=== PATIENT | female | born 1970 | race African-American/Black ===

== ENCOUNTER 2017-12-04 10:53 | Observation (INO) | payer MEDICAID, OTHER ==
[2017-12-04] MEDS ORDERED: MECLIZINE HCL 25 MG TABLET PO ONE (11:43)
--- NOTE | 2017-12-04 11:45 | ER Document Report ---
ED Medical Screen (RME) - General Chief Complaint: Passed Out Prior to Arrival Stated Complaint: PASSED OUT AT WORK Time Seen by Provider: 12/04/17 11:41 Notes: RAPID MEDICAL EVALUATION DISCLOSURE I have seen this patient as part of a Rapid Medical Evaluation and, if applicable, placed any initially appropriate orders. The patient will be seen and fully evaluated, including a full history and physical exam, by a provider ( in Main ED or Fast Track) when a room becomes available. 47-year-old female PMH heavy menses here with complaints of lightheadedness and dizziness (room spinning sensation) ringing in the ears that started earlier this morning while she was at work. She just started her menstrual cycle and this time has been particularly heavy. When she started feeling this way at work, she went and sat down for a few minutes and then when she stood back up, symptoms worsened so she laid down on the floor. Reports that she did not completely pass out but felt very close to it. Her coworkers went and got her some food and drink and she felt a bit better after consuming this. She usually has these symptoms often during her menstrual cycle but states that he has never been as bad as it was today. She has minimal symptoms at this current time. EXAM CTAB RRR TRAVEL OUTSIDE OF THE [place] IN LAST 30 DAYS: No - Related Data Allergies/Adverse Reactions: No Known Allergies Allergy (Verified 12/04/17 10:55) Physical Exam - Vital signs Vitals: Temp Pulse Resp BP Pulse Ox 98.9 F 99 15 101/61 100 12/04/17 11:06 12/04/17 11:06 12/04/17 11:06 12/04/17 11:06 12/04/17 11:06 Course - Vital Signs Vital signs: Temp Pulse Resp BP Pulse Ox 98.9 F 99 15 101/61 100 12/04/17 11:06 12/04/17 11:06 12/04/17 11:06 12/04/17 11:06 12/04/17 11:06 Doctor's Discharge - Discharge Referrals: TALAT CRAVEN MD [Primary Care Provider] - Follow up as needed
[2017-12-04 12:06] LABS: HEMATOCRIT 19.5 % (36.0-47.0); MEAN CORPUSCULAR HGB CONC 26.6 g/dL (32.0-36.0); PLATELET COUNT 183 10^3/uL (150-450); RED BLOOD COUNT 3.24 10^6/uL (3.72-5.28); RED CELL DISTRIBUTION WIDTH 33.1 % (11.5-14.0)
[2017-12-04 12:27] LABS: ALANINE AMINOTRANSFERASE 23 U/L (9-52); ALBUMIN 4.1 g/dL (3.5-5.0); ALKALINE PHOSPHATASE 52 U/L (38-126); ANION GAP 10 (5-19); ASPARTATE AMINO TRANSFERASE 17 U/L (14-36); BILIRUBIN,DIRECT 0.2 mg/dL (0.0-0.4); BILIRUBIN,TOTAL 0.4 mg/dL (0.2-1.3); BLOOD UREA NITROGEN 15 mg/dL (7-20); CALCIUM 8.7 mg/dL (8.4-10.2); CARBON DIOXIDE 26 mmol/L (22-30); CHLORIDE 107 mmol/L (98-107); GLUCOSE 100 mg/dL (75-110); PHOSPHORUS 3.7 mg/dL (2.5-4.5); POTASSIUM 3.9 mmol/L (3.6-5.0); SODIUM 142.9 mmol/L (137-145); TOTAL PROTEIN 7.7 g/dL (6.3-8.2)
[2017-12-04 12:37] LABS: HEMOGLOBIN 5.2 g/dL (12.0-15.5); MEAN CORPUSCULAR VOLUME 60 fl (80-97)
[2017-12-04 12:41] LABS: ABSOLUTE LYMPHOCYTES# (MANUAL) 0.9 10^3/uL (0.5-4.7); ABSOLUTE MONOCYTES # (MANUAL) 0.6 10^3/uL (0.1-1.4); ABSOLUTE NEUTROPHILS# (MANUAL) 4.6 10^3/uL (1.7-8.2); BASOPHILS % (MANUAL) 3 % (0-2); EOSINOPHILS % (MANUAL) 9 % (0-6); LYMPHOCYTES % (MANUAL) 13 % (13-45); MONOCYTES % (MANUAL) 9 % (3-13); SEGMENTED NEUTROPHILS % (MAN) 66 % (42-78); TOTAL CELLS COUNTED 100
[2017-12-04 12:42] LABS: ANISOCYTOSIS 4+; HYPOCHROMASIA 3+
[2017-12-04 12:43] LABS: OVALOCYTES 1+; PLATELET COMMENT ADEQUATE; POIKILOCYTOSIS 1+; ROULEAUX 1+; TARGET CELLS 1+; TEAR DROP CELLS 1+
[2017-12-04] MEDS ORDERED: NORMAL SALINE 250 ML IV PRN ×4 (12:49→13:39)
--- NOTE | 2017-12-04 13:11 | ER Document Report ---
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 No chest pa9n or sob. Hx of anemia usually 10, but this past year is increasingly dizzy whle on menses, gets SOB with exertion, craves ice chips, and has a urterne fibroid that is gettng larger. NO recent illness or fever. No abd. chowdhury. TRAVEL OUTSIDE OF THE [place] IN LAST 30 DAYS: No - Related Data Allergies/Adverse Reactions: No Known Allergies Allergy (Verified 12/04/17 10:55) Past Medical History - General Information source: Patient - Social History Smoking Status: Current Every Day Smoker Chew tobacco use (# tins/day): No Frequency of alcohol use: None Drug Abuse: None Lives with: Spouse/Significant other Family History: Reviewed & Not Pertinent Patient has suicidal ideation: No Patient has homicidal ideation: No - Medical History Notes: anemia Renal/ Medical History: Denies: Hx Peritoneal Dialysis Physical Exam - Vital signs Vitals: Temp Pulse Resp BP Pulse Ox 98.9 F 99 15 101/61 100 12/04/17 11:06 12/04/17 11:06 12/04/17 11:06 12/04/17 11:06 12/04/17 11:06 Interpretation: Normal - General General appearance: Appears well, Alert - HEENT Head: Normocephalic, Atraumatic Eyes: Normal. No: Periorbital edema Pupils: PERRL Neck: Supple. No: Lymphadenopathy - Respiratory Respiratory status: No respiratory distress Chest status: Nontender Breath sounds: Normal Chest palpation: Normal - Cardiovascular Rhythm: Regular Heart sounds: Normal auscultation Murmur: No - Abdominal Inspection: Normal Distension: No distension Bowel sounds: Normal Tenderness: Nontender Organomegaly: Mass - fibrod uterurs palpated - Back Back: Normal, Nontender. No: CVA tenderness - Extremities General upper extremity: Normal inspection, Nontender, Normal color, Normal ROM , Normal temperature General lower extremity: Normal inspection, Nontender, Normal color, Normal ROM , Normal temperature, Normal weight bearing. No: Jaswinder's sign - Neurological Neuro grossly intact: Yes Cognition: Normal Orientation: AAOx4 [place] Coma Scale Eye Opening: Spontaneous Сергей Coma Scale Verbal: Oriented [place] Coma Scale Motor: Obeys Commands [place] Coma Scale Total: 15 Speech: Normal Motor strength normal: LUE, RUE, LLE, RLE Sensory: Normal - Psychological Associated symptoms: Normal affect, Normal mood - Skin Skin Temperature: Warm Skin Moisture: Dry Skin Color: Normal Skin irregularity: negative: Rash Course - Re-evaluation Re-evalutation: 12/04/17 13:09 hbg 5.2, not dizzy anymore when stands. consult dr. martins who does say she needs to be transfused. dr loaiza said to call dr. jose for admission- observation for the blood. 12/04/17 21:54 looking back on her chart, she has 3+ bacteria , 174 WBCm rbc (on menses), called dr. ochoa night hospitalist to let him know that I added urine culture. He wll take care if he feels she needs antibiotics but suspects colonization since no fever. 12/04/17 21:55 - Vital Signs Vital signs: Temp Pulse Resp BP Pulse Ox 98.3 F 71 18 122/66 99 12/04/17 20:18 12/04/17 20:18 12/04/17 20:18 12/04/17 20:18 12/04/17 20:18 - Laboratory Result Diagrams: 12/04/17 11:48 12/04/17 11:48 Laboratory results interpreted by me: 12/04/17 12/04/17 11:48 13:40 RBC 3.24 L Hgb 5.2 L Hct 19.5 L MCV 60 L MCH 16.0 L MCHC 26.6 L RDW 33.1 H Eosinophils % (Manual) 9 H Basophils % (Manual) 3 H Urine Protein 100 H Urine Glucose (UA) 50 H Urine Blood LARGE H Ur Leukocyte Esterase SMALL H Discharge - Discharge Clinical Impression: Symptomatic anemia, Uterine fibroid Condition: Stable Disposition: ADMITTED OBSERVATION Admitting Provider: Hospitalist Unit Admitted: Medical Floor
[2017-12-04] MEDS ORDERED: ONDANSETRON HCL INJ/PF 4 MG/2 ML SDV IV PRN (13:21)
[2017-12-04] MEDS ORDERED: ACETAMINOPHEN 325 MG TABLET PO PRN (13:21)
--- NOTE | 2017-12-04 13:39 | PDOC H&P ---
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 Her initial blood work shows drop in her hemoglobin of 5.2 from 10. Of note patient has heavy menses and uterine fibroid . Patient denies other chronic medical problems. No nausea , vomiting, abdominal pain, diarrhea, urinary complaints. No fever, chills, chest pain, cough, palpitation or diaphoresis patient endorses dizziness but no headache, blurry vision or seizure activity. No facial or leg swelling. Past Medical History Renal/ Medical History: Reports: Other - Fibroid Social History Smoking Status: Current Every Day Smoker Frequency of Alcohol Use: None Hx Recreational Drug Use: No Drugs: None Family History Family History: Hypertension Parental Family History Reviewed: Yes Children Family History Reviewed: Yes Sibling(s) Family History Reviewed.: Yes Medication/Allergy Allergies/Adverse Reactions: No Known Allergies Allergy (Verified 12/04/17 10:55) Review of Systems Constitutional: PRESENT: as per HPI Eyes: PRESENT: as per HPI Ears: PRESENT: as per HPI Cardiovascular: PRESENT: as per HPI Respiratory: PRESENT: as per HPI Neurological: PRESENT: as per HPI Psychiatric: PRESENT: as per HPI Physical Exam Vital Signs: Temp Pulse Resp BP Pulse Ox 98.9 F 99 15 101/61 100 12/04/17 11:06 12/04/17 11:06 12/04/17 11:06 12/04/17 11:06 12/04/17 11:06 Intake & Output 12/03/17 12/04/17 12/05/17 06:59 06:59 06:59 Weight 72.2 kg Results Laboratory Results: 12/04/17 11:48 12/04/17 11:48 12/04/17 12/04/17 11:48 11:48 WBC 7.0 RBC 3.24 L Hgb 5.2 L Hct 19.5 L MCV 60 L MCH 16.0 L MCHC 26.6 L RDW 33.1 H Plt Count 183 Seg Neutrophils % Not Reportable Lymphocytes % Not Reportable Monocytes % Not Reportable Eosinophils % Not Reportable Basophils % Not Reportable Absolute Neutrophils Not Reportable Absolute Lymphocytes Not Reportable Absolute Monocytes Not Reportable Absolute Eosinophils Not Reportable Absolute Basophils Not Reportable Sodium 142.9 Potassium 3.9 Chloride 107 Carbon Dioxide 26 Anion Gap 10 BUN 15 Creatinine 0.85 Est GFR ( Amer) > 60 Est GFR (Non-Af Amer) > 60 Glucose 100 Calcium 8.7 Phosphorus 3.7 Magnesium 1.9 Total Bilirubin 0.4 AST 17 ALT 23 Alkaline Phosphatase 52 Total Protein 7.7 Albumin 4.1 Assessment & Plan - Diagnosis (1) Symptomatic anemia Is this a current diagnosis for this admission?: Yes Plan: Patient presents with dizziness and syncope due to underlying blood loss anemia. 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
[2017-12-04 15:22] LABS: APPEARANCE,URINE SLIGHTLY-CLOUDY; BILIRUBIN,URINE NEGATIVE (NEGATIVE); COLOR,URINE RED; GLUCOSE, URINE 50 mg/dL (NEGATIVE); KETONES,URINE NEGATIVE (NEGATIVE); LEUKOCYTE ESTERASE,URINE SMALL (NEGATIVE); NITRITE,URINE NEGATIVE (NEGATIVE); PROTEIN,URINE 100 mg/dL (NEGATIVE); URINE SPECIFIC GRAVITY 1.008; UROBILINOGEN,URINE NEGATIVE mg/dL (<2.0)
--- NOTE | 2017-12-04 19:42 | EKG REPORT ---
SEVERITY:- ABNORMAL ECG - SINUS RHYTHM LEFT ATRIAL ABNORMALITY : Confirmed by: Linda Alonso MD 04-Dec-2017 19:41:37
[2017-12-04] MEDS ORDERED: IRON SUCROSE COMPLEX INJ/PF 100 MG/5 ML SDV IV ONE ×2 (22:30→23:15)
[2017-12-04 22:40] LABS: IRON(TIBC) 11.1 ug/dL (37-170)
[2017-12-04 22:46] LABS: ABSOLUTE RETICS # 0.106 10^6/uL (0.028-0.122); RETICULOCYTE COUNT (AUTO) 3.23 % (0.66-2.85)
[2017-12-04 23:14] LABS: FERRITIN 3.75 ng/mL (6.2-137.0)
[2017-12-05] MEDS ORDERED: LANSOPRAZOLE 30 MG TAB.RAP.DR PO SCH (06:00)
[2017-12-05 07:23] LABS: HEMATOCRIT 22.2 % (36.0-47.0); MEAN CORPUSCULAR HEMOGLOBIN 19.5 pg (27.0-33.4); MEAN CORPUSCULAR HGB CONC 29.6 g/dL (32.0-36.0); RED BLOOD COUNT 3.37 10^6/uL (3.72-5.28); RED CELL DISTRIBUTION WIDTH 37.4 % (11.5-14.0); WHITE BLOOD COUNT 8.9 10^3/uL (4.0-10.5)
[2017-12-05 07:29] LABS: ANION GAP 8 (5-19); BLOOD UREA NITROGEN 11 mg/dL (7-20); CALCIUM 8.2 mg/dL (8.4-10.2); CARBON DIOXIDE 24 mmol/L (22-30); CHLORIDE 110 mmol/L (98-107); GLUCOSE 89 mg/dL (75-110); POTASSIUM 3.7 mmol/L (3.6-5.0); SODIUM 142.4 mmol/L (137-145)
[2017-12-05 08:23] LABS: HEMOGLOBIN 6.6 g/dL (12.0-15.5)
[2017-12-05 08:25] LABS: MEAN CORPUSCULAR VOLUME 66 fl (80-97)
[2017-12-05 08:26] LABS: PLATELET COUNT 222 10^3/uL (150-450)
[2017-12-05] MEDS ORDERED: NORMAL SALINE 250 ML IV PRN ×2 (10:31)
[2017-12-05 14:10] LABS: PATH REVIEW PATHOLOGIST REVIEWED
--- NOTE | 2017-12-05 14:26 | PDOC DISCHARGE SUMMARY ---
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 Her initial blood work shows drop in her hemoglobin of 5.2 from 10. Of note patient has heavy menses and uterine fibroid . Patient denies other chronic medical problems. No nausea , vomiting, abdominal pain, diarrhea, urinary complaints. No fever, chills, chest pain, cough, palpitation or diaphoresis patient endorses dizziness but no headache, blurry vision or seizure activity. No facial or leg swelling. Hospital Course Hospital Course: This is a 47 years old black female patient admitted yesterday for symptomatic anemia due heavy menses secondary to uterine fibroid. At that admission her hemoglobin was 5.2 after she got 2 units of PRBC her hemoglobin trended up to 6.6 but still she needs additional 1 unit of packed RBC. Patient advised her to have a hysterectomy since she completed her family. [facility] This morning I seen patient while she is resting in bed she is awake alert oriented she is not in pain or any form of distress. Was she finished her third PRBC patient is going to go. Physical Exam Vital Signs: Temp Pulse Resp BP Pulse Ox 98.1 F 66 15 114/59 L 100 12/05/17 13:24 12/05/17 13:24 12/05/17 13:24 12/05/17 13:24 12/05/17 13:24 Intake & Output 12/04/17 12/05/17 12/06/17 06:59 06:59 06:59 Intake Total 600 420 Balance 600 420 Weight 70 kg General appearance: PRESENT: no acute distress, well-developed, well-nourished Head exam: PRESENT: atraumatic, normocephalic Eye exam: PRESENT: conjunctiva pink, EOMI, PERRLA. ABSENT: scleral icterus Ear exam: PRESENT: normal external ear exam Mouth exam: PRESENT: moist, tongue midline Neck exam: ABSENT: carotid bruit, JVD, lymphadenopathy, thyromegaly Respiratory exam: PRESENT: clear to auscultation felipe. ABSENT: rales, rhonchi, wheezes Cardiovascular exam: PRESENT: RRR. ABSENT: diastolic murmur, rubs, systolic murmur Pulses: PRESENT: normal dorsalis pedis pul Vascular exam: PRESENT: normal capillary refill GI/Abdominal exam: PRESENT: normal bowel sounds, soft. ABSENT: distended, guarding, mass, organolmegaly, rebound, tenderness Rectal exam: PRESENT: deferred Extremities exam: PRESENT: full ROM. ABSENT: calf tenderness, clubbing, pedal edema Neurological exam: PRESENT: alert, awake, oriented to person, oriented to place , oriented to time, oriented to situation, CN II-XII grossly intact. ABSENT: motor sensory deficit Psychiatric exam: PRESENT: appropriate affect, normal mood. ABSENT: homicidal ideation, suicidal ideation Skin exam: PRESENT: dry, intact, warm. ABSENT: cyanosis, rash Results Laboratory Results: 12/05/17 07:03 12/05/17 07:03 12/04/17 12/05/17 12/05/17 14:09 07:03 07:03 WBC 8.9 RBC 3.37 L Hgb 6.6 L Hct 22.2 L MCV 66 L D MCH 19.5 L MCHC 29.6 L RDW 37.4 H Plt Count 222 Sodium 142.4 Potassium 3.7 Chloride 110 H Carbon Dioxide 24 Anion Gap 8 BUN 11 Creatinine 0.59 Est GFR ( Amer) > 60 Est GFR (Non-Af Amer) > 60 Glucose 89 Calcium 8.2 L Blood Type B POSITIVE Antibody Screen NEGATIVE Qualifiers - * PATIENT BEING DISCHARGED WITH ANY OF THE FOLLOWING DIAGNOSIS: No
[2017-12-05 16:50] VITALS: BP 118/71
[2017-12-05 17:32] LABS: ABSOLUTE BASOPHILS # (AUTO) 0.1 10^3/uL (0.0-0.2); ABSOLUTE EOSINOPHILS # (AUTO) 0.6 10^3/uL (0.0-0.6); ABSOLUTE LYMPHOCYTES (AUTO) 1.8 10^3/uL (0.5-4.7); ABSOLUTE MONOCYTES (AUTO) 0.8 10^3/uL (0.1-1.4); ABSOLUTE NEUT (AUTO) 6.2 10^3/uL (1.7-8.2); BASOPHILS % (AUTO) 0.9 % (0-2); EOSINOPHILS % (AUTO) 6.7 % (0-6); HEMATOCRIT 25.4 % (36.0-47.0); LYMPHOCYTES % (AUTO) 19.3 % (13-45); MEAN CORPUSCULAR HEMOGLOBIN 21.4 pg (27.0-33.4); MEAN CORPUSCULAR HGB CONC 31.6 g/dL (32.0-36.0); MEAN CORPUSCULAR VOLUME 68 fl (80-97); MONOCYTES % (AUTO) 7.9 % (3-13); PLATELET COUNT 265 10^3/uL (150-450); RED BLOOD COUNT 3.74 10^6/uL (3.72-5.28); SEGMENTED NEUTROPHILS % (AUTO) 65.2 % (42-78); TOTAL CELLS COUNTED % (AUTO) 100 %; WHITE BLOOD COUNT 9.5 10^3/uL (4.0-10.5)
[2017-12-05 18:01] LABS: ANISOCYTOSIS 4+; HYPOCHROMASIA 1+; TOXIC GRANULATION SLIGHT
[2017-12-05 18:02] LABS: ACANTHOCYTES SLIGHT; PLATELET COMMENT ADEQUATE; POIKILOCYTOSIS 2+; TEAR DROP CELLS SLIGHT
== END 2017-12-05 18:55 | disposition home or self-care (01) ==
LOC: ER 10:53 → EH 13:43 → 2S 14:57
PROVIDERS: ADMIT Internal Medicine; ATTEND Internal Medicine
PROC: 30233N1 Transfusion of Nonautologous Red Blood Cells into Peripheral Vein, Percutaneous Approach (ICD-10-PCS; principal; 2017-12-04)
PROC: 30233N1 Transfusion of Nonautologous Red Blood Cells into Peripheral Vein, Percutaneous Approach (ICD-10-PCS; 2017-12-05)
DX: D62 Acute posthemorrhagic anemia (principal); D50.0 Iron deficiency anemia secondary to blood loss (chronic); D25.9 Leiomyoma of uterus, unspecified; N92.0 Excessive and frequent menstruation with regular cycle; F17.200 Nicotine dependence, unspecified, uncomplicated; R55 Syncope and collapse; Z82.49 Family history of ischemic heart disease and other diseases of the circulatory system
CPT/HCPCS: 93005; 99285; 86900; 86901; 36415 ×2; 87086; 36430; 86850; 82607; 82728; 82746; 83540; 83550; 83735; 84100; 85025 ×2; 85027; 85045; 80048; 80053; 81001; 86920; 93010; G0378 ×3; P9016 ×2; J3490 ×2; J1756

== ENCOUNTER 2019-08-06 09:54 | Observation (INO) | payer OTHER ==
--- NOTE | 2019-08-06 11:57 | ER Document Report ---
ED Medical Screen (RME) - General Chief Complaint: Abnormal Lab Results Stated Complaint: ABNORMAL LABS Time Seen by Provider: 08/06/19 11:51 Notes: HPI: 49-year-old female presenting to the emergency department for evaluation of severe anemia. Patient states that she has a history of fibroid uterus and has had to be transfused approximately 2 years ago. Patient states that she was just not feeling well yesterday and went to the [place] [facility] and had blood work drawn and they called her back and told her that her hemoglobin was 5.5 and she would need a blood transfusion. Patient denies shortness of breath, chest pain, dizziness with standing. States her last menstrual cycle was 2 weeks ago she is not having vaginal bleeding currently I have greeted and performed a rapid initial assessment of this patient. A comprehensive ED assessment and evaluation of the patient, analysis of test results and completion of the medical decision making process will be conducted by additional ED providers PHYSICAL EXAMINATION: GENERAL: Well-appearing, well-nourished and in no acute distress. HEAD: Atraumatic, normocephalic. EYES: sclera pale, conjunctiva are normal. ENT: Moist mucous membranes. NECK: Normal range of motion LUNGS: Normal work of breathing, clear to auscultation HEART: 2+ radial pulses bilaterally, regular rate and rhythm ABD: limited by positioning for exam in triage. No tenderness on palpation EXTREMITIES: no pitting or edema. No cyanosis. NEUROLOGICAL: No focal neurological deficits. Moves all extremities spontaneously and on command. PSYCH: Normal mood, normal affect. SKIN: Warm, Dry, normal turgor, no rashes or lesions noted. Patient is moderately pale TRAVEL OUTSIDE OF THE [place] IN LAST 30 DAYS: No - Related Data Allergies/Adverse Reactions: No Known Allergies Allergy (Verified 12/04/17 10:55) Past Medical History - Social History Frequency of alcohol use: None Drug Abuse: None Renal/ Medical History: Denies: Hx Peritoneal Dialysis Physical Exam - Vital signs Vitals: Temp Pulse Resp BP Pulse Ox 98.1 F 74 20 117/65 100 08/06/19 10:00 08/06/19 10:08/06/19 10:00 08/06/19 10:08/06/19 10:00 Course - Vital Signs Vital signs: Temp Pulse Resp BP Pulse Ox 98.1 F 74 20 117/65 100 08/06/19 10:00 08/06/19 10:00 08/06/19 10:00 08/06/19 10:00 08/06/19 10:00
--- NOTE | 2019-08-06 13:01 | ER Document Report ---
ED General - General Chief Complaint: Abnormal Lab Results Stated Complaint: ABNORMAL LABS Time Seen by Provider: 08/06/19 11:51 Information source: Patient Notes: Patient is a 49-year-old female presenting to the emergency department chief complaint of acute on chronic anemia. Patient states she has a history of ane roe however for the past 2 to 3 weeks she has been feeling more weak than normal she went in and had blood work checked and was called and instructed to come to the emergency department. Patient's blood count per laboratory testing was 5 however today in the emergency department after obtaining blood work hemoglobin was 6.3. Patient states that she has a history of uterine fibroids. Patient denies any other complaints at this time. TRAVEL OUTSIDE OF THE [place] IN LAST 30 DAYS: No - HPI Onset: Other - 2-3 wks Onset/Duration: Gradual Quality of pain: No pain Severity: None Pain Level: 0 Associated symptoms: Weakness Exacerbated by: Denies Relieved by: Denies Similar symptoms previously: Yes Recently seen / treated by doctor: Yes - Related Data Allergies/Adverse Reactions: No Known Allergies Allergy (Verified 12/04/17 10:55) Past Medical History - General Information source: Patient - Social History Smoking Status: Never Smoker Frequency of alcohol use: None Drug Abuse: None Family History: Reviewed & Not Pertinent Patient has suicidal ideation: No Patient has homicidal ideation: No Renal/ Medical History: Reports: Other - Uterine fibroids. Denies: Hx Peritoneal Dialysis Review of Systems - Review of Systems Notes: REVIEW OF SYSTEMS: CONSTITUTIONAL : Denies fever, chills, or sweats. Generalized weakness EENT: Denies eye, ear, throat, or mouth pain or symptoms. Denies nasal or sinus congestion. CARDIOVASCULAR: Denies chest pain. RESPIRATORY: Denies cough, cold, or chest congestion. Denies shortness of br eath, difficulty breathing, or wheezing. GASTROINTESTINAL: Denies abdominal pain. Denies nausea, vomiting, or diarrhea. Denies constipation. GENITOURINARY: Denies difficulty urinating, painful urination, burning, frequency, or blood in urine. Uterine fibroid bleeding MUSCULOSKELETAL: Denies neck or back pain or joint pain or swelling. SKIN: Denies rash or skin lesions. HEMATOLOGIC : Denies easy bruising or bleeding. NEUROLOGICAL: Denies altered mental status or loss of consciousness. Denies headache. Denies weakness or paralysis or loss of use of either side. Denies problems with gait or speech. Denies sensory or motor loss. PSYCHIATRIC: Denies suicidal or homicidal ideations 10 Systems are negative unless otherwise specified above Physical Exam - Vital signs Vitals: Temp Pulse Resp BP Pulse Ox 98.1 F 74 20 117/65 100 08/06/19 10:00 08/06/19 10:00 08/06/19 10:00 08/06/19 10:00 08/06/19 10:00 - Notes Notes: PHYSICAL EXAMINATION: GENERAL: Well-appearing, well-nourished and in no acute distress. HEAD: Atraumatic, normocephalic. EYES: Pupils equal round and reactive to light, extraocular movements intact, sclera anicteric, conjunctiva are normal. ENT: nares patent, oropharynx clear without exudates. Moist mucous membranes. NECK: Normal range of motion, supple without lymphadenopathy, no appreciable JVD LUNGS: Lungs clear to auscultation bilaterally and equal. No wheezes rales or rhonchi. HEART: Regular rate and rhythm without murmurs ABDOMEN: Soft, nontender, normal bowel sounds. No guarding, no rebound. No masses appreciated. EXTREMITIES: Active full range of motion, no pitting or edema. No cyanosis. 2+ pulses x4 NEUROLOGICAL: No focal neurological deficits. Moves all extremities spontane ously and on command. SKIN: Warm, Dry, and intact. Normal turgor, no rashes or lesions noted. Course - Re-evaluation Re-evalutation: 08/06/19 16:50 Patient has remained stable while in emergency department. Patient has no complaints at this time. We have discussed the need for transfusion patient is agreeable with same. 2 units of packed red blood cells crossmatched have been ordered. I spoke with the hospitalist who is agreeable with admission at this time. - Vital Signs Vital signs: Temp Pulse Resp BP Pulse Ox 98.1 F 74 20 117/65 100 08/06/19 10:00 08/06/19 10:00 08/06/19 10:00 08/06/19 10:00 08/06/19 10:00 - Laboratory Result Diagrams: 08/06/19 12:44 08/06/19 12:44 Laboratory results interpreted by me: 08/06/19 08/06/19 08/06/19 12:44 12:44 13:15 Hgb 6.3 L Hct 22.5 L MCV 60 L MCH 16.6 L MCHC 27.8 L RDW 28.4 H Eosinophils % (Manual) 11 H Creatinine 0.48 L Total Protein 8.8 H Crossmatch See Detail Discharge - Discharge Clinical Impression: Uterine fibroid Qualifiers: Uterine leiomyoma location: unspecified location Qualified Code(s): D25.9 - Leiomyoma of uterus, unspecified Anemia Qualifiers: Anemia type: iron deficiency Iron deficiency anemia type: chronic blood loss Qualified Code(s): D50.0 - Iron deficiency anemia secondary to blood loss (chronic) Condition: Stable Disposition: ADMITTED INPATIENT Unit Admitted: Medical Floor
[2019-08-06 13:04] LABS: WHITE BLOOD COUNT 4.8 10^3/uL (4.0-10.5)
[2019-08-06 13:20] LABS: ALBUMIN 4.5 g/dL (3.5-5.0); ALKALINE PHOSPHATASE 61 U/L (38-126); ANION GAP 8 (5-19); ASPARTATE AMINO TRANSFERASE 26 U/L (14-36); BILIRUBIN,TOTAL 0.4 mg/dL (0.2-1.3); BLOOD UREA NITROGEN 12 mg/dL (7-20); CALCIUM 8.9 mg/dL (8.4-10.2); CARBON DIOXIDE 24 mmol/L (22-30); CHLORIDE 107 mmol/L (98-107); GLUCOSE 81 mg/dL (75-110); POTASSIUM 4.4 mmol/L (3.6-5.0); TOTAL PROTEIN 8.8 g/dL (6.3-8.2)
[2019-08-06 13:38] LABS: HEMATOCRIT 22.5 % (36.0-47.0); HEMOGLOBIN 6.3 g/dL (12.0-15.5); MEAN CORPUSCULAR HEMOGLOBIN 16.6 pg (27.0-33.4); MEAN CORPUSCULAR HGB CONC 27.8 g/dL (32.0-36.0); PLATELET COUNT 321 10^3/uL (150-450); RED BLOOD COUNT 3.76 10^6/uL (3.72-5.28); RED CELL DISTRIBUTION WIDTH 28.4 % (11.5-14.0)
[2019-08-06 13:39] LABS: MEAN CORPUSCULAR VOLUME 60 fl (80-97)
[2019-08-06 13:44] LABS: ABSOLUTE LYMPHOCYTES# (MANUAL) 1.2 10^3/uL (0.5-4.7); ABSOLUTE MONOCYTES # (MANUAL) 0.3 10^3/uL (0.1-1.4); BASOPHILS % (MANUAL) 0 % (0-2); EOSINOPHILS % (MANUAL) 11 % (0-6); LYMPHOCYTES % (MANUAL) 26 % (13-45); MONOCYTES % (MANUAL) 7 % (3-13); SEGMENTED NEUTROPHILS % (MAN) 56 % (42-78); TOTAL CELLS COUNTED 100
[2019-08-06 13:48] LABS: ANISOCYTOSIS 3+; HYPOCHROMASIA 2+; OVALOCYTES 1+; POIKILOCYTOSIS 2+; POLYCHROMASIA SLIGHT; TEAR DROP CELLS 1+
[2019-08-06 13:49] LABS: PLATELET COMMENT ADEQUATE; SCHISTOCYTES SLIGHT
[2019-08-06] MEDS ORDERED: NORMAL SALINE 250 ML IV PRN ×2 (16:45)
[2019-08-06] MEDS ORDERED: ONDANSETRON HCL INJ/PF 4 MG/2 ML SDV IV PRN (17:53)
[2019-08-06] MEDS ORDERED: ACETAMINOPHEN 325 MG TABLET PO PRN (17:53)
[2019-08-06] MEDS ORDERED: MAG HYDROX/AL HYDROX/SIMETH SUSP 30 ML UDCUP PO PRN (17:53)
--- NOTE | 2019-08-06 18:05 | PDOC H&P ---
History of Present Illness Admission Date/PCP: 08/06/19 17:18 [facility] Patient complains of: Weakness, abnormal lab results History of Present Illness: GREGORY LUJAN is a 49 year old female with a past medical history significant for anemia secondary to uterine fibroids and heavy menses who presented to her PCP two days ago for generalized weakness and fatigue. She was called last night with report of hemoglobin of 5.5 and directed to go to the emergency [facility]. Evaluation in the emergency department reveals Anemia with a hemoglobin of 6.3, unremarkable chemistry, negative hCG, stable vital signs, and stable vital signs. She is ordered 2 units PRBC by the ED provider and referred to the hospitalist service for admission and management of the above-stated complaints of findings. Past Medical History Cardiac Medical History: Reports: None Pulmonary Medical History: Reports: None EENT Medical History: Reports: None Neurological Medical History: Reports: None Endocrine Medical History: Reports: None Renal/ Medical History: Reports: Other - Uterine fibroids Malignancy Medical History: Reports: None GI Medical History: Reports: None Musculoskeltal Medical History: Reports: None Skin Medical History: Reports: None Psychiatric Medical History: Reports: None Traumatic Medical History: Reports: None Hematology: Reports: Anemia Past Surgical History Past Surgical History: Reports: None Social History Information Source: Patient Lives with: Alone Smoking Status: Current Some Day Smoker Electronic Cigarette use?: No Frequency of Alcohol Use: Social Hx Recreational Drug Use: No Drugs: None Hx Prescription Drug Abuse: No - Advance Directive Resuscitation Status: Full Code Family History Family History: Reviewed & Not Pertinent. denies: Malignancy Parental Family History Reviewed: Yes Children Family History Reviewed: Yes Sibling(s) Family History Reviewed.: Yes Medication/Allergy Home Medications: No Home Medications 12/04/17 Allergies/Adverse Reactions: No Known Allergies Allergy (Verified 12/04/17 10:55) Review of Systems Constitutional: PRESENT: fatigue, weakness. ABSENT: chills, fever(s), headache(s), weight gain, weight loss Eyes: ABSENT: visual disturbances Ears: ABSENT: hearing changes Cardiovascular: ABSENT: chest pain, dyspnea on exertion, edema, orthropnea, palpitations Respiratory: ABSENT: cough, hemoptysis Gastrointestinal: PRESENT: other - Hemorrhoids. ABSENT: abdominal pain, constipation, diarrhea, hematemesis, hematochezia, nausea, vomiting Genitourinary: ABSENT: dysuria, hematuria Musculoskeletal: ABSENT: joint swelling Integumentary: ABSENT: rash, wounds Neurological: ABSENT: abnormal gait, abnormal speech, confusion, dizziness, focal weakness, syncope Psychiatric: ABSENT: anxiety, depression, homidical ideation, suicidal ideation Endocrine: ABSENT: cold intolerance, heat intolerance, polydipsia, polyuria Hematologic/Lymphatic: ABSENT: easy bleeding, easy bruising Physical Exam Vital Signs: Temp Pulse Resp BP Pulse Ox 98.1 F 74 20 117/65 100 08/06/19 10:00 08/06/19 10:00 08/06/19 10:00 08/06/19 10:00 08/06/19 10:00 Intake & Output 08/05/19 08/06/19 08/07/19 06:59 06:59 06:59 Weight 80 kg General appearance: PRESENT: no acute distress, cooperative, well-developed, well-nourished Head exam: PRESENT: atraumatic, normocephalic Eye exam: PRESENT: conjunctiva pale, EOMI, PERRLA. ABSENT: scleral icterus Ear exam: PRESENT: normal external ear exam Mouth exam: PRESENT: moist, tongue midline Respiratory exam: PRESENT: clear to auscultation felipe, symmetrical, unlabored. ABSENT: rales, rhonchi, wheezes Cardiovascular exam: PRESENT: RRR, +S1, +S2. ABSENT: diastolic murmur, rubs, systolic murmur Pulses: PRESENT: normal dorsalis pedis pul Vascular exam: PRESENT: normal capillary refill GI/Abdominal exam: PRESENT: normal bowel sounds, soft. ABSENT: distended, guarding, mass, organolmegaly, rebound, tenderness Rectal exam: PRESENT: deferred Extremities exam: PRESENT: full ROM. ABSENT: calf tenderness, clubbing, pedal edema Neurological exam: PRESENT: alert, awake, oriented to person, oriented to place, oriented to time, oriented to situation, CN II-XII grossly intact. ABSENT: motor sensory deficit Psychiatric exam: PRESENT: appropriate affect, normal mood. ABSENT: homicidal ideation, suicidal ideation Skin exam: PRESENT: dry, intact, pallor, warm. ABSENT: cyanosis, rash Results Laboratory Results: 08/06/19 12:44 08/06/19 12:44 08/06/19 08/06/19 08/06/19 12:44 12:44 12:44 WBC 4.8 RBC 3.76 Hgb 6.3 L Hct 22.5 L MCV 60 L MCH 16.6 L MCHC 27.8 L RDW 28.4 H Plt Count 321 Seg Neutrophils % Not Reportable Sodium 138.8 Potassium 4.4 Chloride 107 Carbon Dioxide 24 Anion Gap 8 BUN 12 Creatinine 0.48 L Est GFR ( Amer) > 60 Glucose 81 Calcium 8.9 Total Bilirubin 0.4 AST 26 Alkaline Phosphatase 61 Total Protein 8.8 H Albumin 4.5 Blood Type Cancelled Antibody Screen Cancelled 08/06/19 13:15 WBC RBC Hgb Hct MCV MCH MCHC RDW Plt Count Seg Neutrophils % Sodium Potassium Chloride Carbon Dioxide Anion Gap BUN Creatinine Est GFR ( Amer) Glucose Calcium Total Bilirubin AST Alkaline Phosphatase Total Protein Albumin Blood Type B POSITIVE Antibody Screen NEGATIVE Assessment and Plan - Diagnosis (1) Symptomatic anemia Is this a current diagnosis for this admission?: Yes Plan: Patient presents to PCP with generalized weakness and is found to have a hemoglobin of 5.5. She is referred to the emergency department where repeat CBC shows hemoglobin of 6.3. Vital signs are stable. No active bleeding at this time. Patient is admitted to the medical floor. She will be provided 2 units PRBC. Start multivitamin with iron supplementation. Anemia panel in the a.m. Gynecology consultation. Follow up CBC (2) Acute on chronic blood loss anemia Is this a current diagnosis for this admission?: Yes Plan: Secondary to uterine fibroid/heavy uterine bleeding (menses). Anemia panel pending. Remaining management as above. (3) Uterine fibroid Qualifiers: Uterine leiomyoma location: unspecified location Qualified Code(s): D25.9 - Leiomyoma of uterus, unspecified Is this a current diagnosis for this admission?: Yes Plan: Patient reports that she was seen by a energy control officer in 2018 with recommendations for watchful waiting as she was premenopausal and that her anemia related to uterine bleeding may subside following menopause. Otherwise, may consider hysterectomy. Patient reports that she was hesitant at that time and decided not to pursue hysterectomy. She has had no further follow-up since 2018. She does request consultation with SCHEDULING MANAGER service to review options for further management as this is the second time she is required admission and transfusion for her anemia. - Time Time Spent with patient: 35 or more minutes Medications reviewed and adjusted accordingly: Yes Anticipated discharge: Home Within: within 24 hours
[2019-08-06] MEDS ORDERED: IRON SUCROSE COMPLEX INJ/PF 100 MG/5 ML SDV IV ONE ×2 (21:30→23:45)
[2019-08-07] MEDS ORDERED: PANTOPRAZOLE SODIUM 40 MG TABLET.DR PO SCH (06:00)
[2019-08-07 07:12] LABS: ABSOLUTE RETICS # 0.054 10^6/uL (0.028-0.122); HEMATOCRIT 26.3 % (36.0-47.0); MEAN CORPUSCULAR HEMOGLOBIN 19.5 pg (27.0-33.4); MEAN CORPUSCULAR HGB CONC 30.5 g/dL (32.0-36.0); PLATELET COUNT 221 10^3/uL (150-450); RED BLOOD COUNT 4.12 10^6/uL (3.72-5.28); RED CELL DISTRIBUTION WIDTH 31.9 % (11.5-14.0); RETICULOCYTE COUNT (AUTO) 1.31 % (0.66-2.85); WHITE BLOOD COUNT 4.8 10^3/uL (4.0-10.5)
[2019-08-07 07:15] LABS: ANION GAP 7 (5-19); BLOOD UREA NITROGEN 14 mg/dL (7-20); CALCIUM 8.3 mg/dL (8.4-10.2); CARBON DIOXIDE 20 mmol/L (22-30); CHLORIDE 109 mmol/L (98-107); GLUCOSE 90 mg/dL (75-110); IRON(TIBC) 428.8 ug/dL (37-170); POTASSIUM 4.2 mmol/L (3.6-5.0)
[2019-08-07 07:51] LABS: FERRITIN 9.35 ng/mL (6.2-137.0)
[2019-08-07 07:55] LABS: MEAN CORPUSCULAR VOLUME 64 fl (80-97)
[2019-08-07] MEDS ORDERED: DOCUSATE SODIUM 100 MG CAPSULE PO SCH (10:00)
[2019-08-07] MEDS ORDERED: MULTIVITAMIN TABLET PO SCH (10:00)
[2019-08-07] MEDS ORDERED: FERROUS SULFATE 325 MG TABLET PO SCH (10:00)
[2019-08-07 11:07] LABS: PATH REVIEW PATHOLOGIST REVIEWED
[2019-08-07] MEDS ORDERED: FERUMOXYTOL 510 MG in NORMAL SALINE 100 ML IV ONE (13:00)
[2019-08-07 13:08] VITALS: BP 117/71
--- NOTE | 2019-08-08 17:06 | PDOC DISCHARGE SUMMARY ---
Impression - Admit/DC Date/PCP Admission Date/Primary Care Provider: 08/06/19 17:18 [place] [facility] Discharge Date: 08/07/19 - Discharge Diagnosis (1) Symptomatic anemia Is this a current diagnosis for this admission?: Yes (2) Acute on chronic blood loss anemia Is this a current diagnosis for this admission?: Yes (3) Uterine fibroid Is this a current diagnosis for this admission?: Yes - Additional Information Resuscitation Status: Full Code Discharge Diet: Regular Discharge Activity: Activity As Tolerated, Balance Activity w/Rest, Slowly Increase Activity Referrals: TRINI MARTINES MD [ACTIVE STAFF] - 09/12/19 1:30 pm (CALL THE THE OFFICE FOR ANY QUESTIONS OR CONCERNS.) SYLVIE JUAREZ MD [ACTIVE STAFF] - 09/03/19 2:00 pm (CALL THE OFFICE FOR ANY QUESTIONS OR CONCERNS.) [facility] [Primary [facility]] - Follow up as needed Prescriptions: Multivitamin [Tab-A-Charanjit (Multiple Vitamin) Tablet] 1 tab PO DAILY #90 tablet Home Medications: Ferrous Gluconate 324 mg PO Q12 08/06/19 Acetaminophen [Tylenol 325 mg Tablet] 650 mg PO Q4HP PRN tablet 08/07/19 Multivitamin [Tab-A-Charanjit (Multiple Vitamin) Tablet] 1 tab PO DAILY #90 tablet 08/07/19 History of Present Illiness History of Present Illness: GREGORY LUJAN is a 49 year old female with a past medical history significant for anemia secondary to uterine fibroids and heavy menses who presented to her PCP two days ago for generalized weakness and fatigue. She was called last night with report of hemoglobin of 5.5 and directed to go to the emergency department. Evaluation in the emergency department reveals Anemia with a hemoglobin of 6.3, unremarkable chemistry, negative hCG, stable vital signs, and stable vital signs. She is ordered 2 units PRBC by the ED provider and referred to the hospitalist service for admission and management of the above-stated complaints of findings. Hospital Course Hospital Course: The patient was admitted to the medical floor. She was provided 2 units PRBC with increase of hemoglobin to 8.0 incomplete resolution of her symptoms. Her vital signs remained stable throughout her stay. Anemia panel revealed iron deficiency anemia with a ferritin of 9.35. I did discuss her lab values with Dr. Juarez who recommended she receive IV iron prior to discharge with follow-up appointment in her office in 2-3 weeks. She was discharged home, in stable condition, with self-care. She was recommended to follow-up with her primary care provider within 1 week, with Dr. Juarez (Hematology) as mentioned above, and with Dr. Martines (PACK OPERATOR) at the earliest available appointment. She was advised to start a multivitamin and iron supplement. She was encouraged to return the emergency department as needed for concerning symptoms. Physical Exam Vital Signs: Temp Pulse Resp BP Pulse Ox 97.9 F 62 20 117/71 100 08/07/19 15:56 08/07/19 15:56 08/07/19 15:56 08/07/19 15:56 08/07/19 15:56 Intake & Output 08/07/19 08/08/19 08/09/19 06:59 06:59 06:59 Intake Total 700 Balance 700 Weight 75 kg General appearance: PRESENT: no acute distress, cooperative, well-developed, well-nourished Head exam: PRESENT: atraumatic, normocephalic Eye exam: PRESENT: conjunctiva pink, EOMI, PERRLA. ABSENT: scleral icterus Ear exam: PRESENT: normal external ear exam Mouth exam: PRESENT: moist, tongue midline Respiratory exam: PRESENT: clear to auscultation felipe, symmetrical, unlabored. ABSENT: rales, rhonchi, wheezes Cardiovascular exam: PRESENT: RRR, +S1, +S2. ABSENT: diastolic murmur, rubs, systolic murmur Pulses: PRESENT: normal dorsalis pedis pul Vascular exam: PRESENT: normal capillary refill GI/Abdominal exam: PRESENT: normal bowel sounds, soft. ABSENT: distended, guarding, mass, organolmegaly, rebound, tenderness Rectal exam: PRESENT: deferred Extremities exam: PRESENT: full ROM. ABSENT: calf tenderness, clubbing, pedal edema Musculoskeletal exam: PRESENT: ambulatory Neurological exam: PRESENT: alert, awake, oriented to person, oriented to place, oriented to time, oriented to situation, CN II-XII grossly intact. ABSENT: motor sensory deficit Psychiatric exam: PRESENT: appropriate affect, normal mood. ABSENT: homicidal ideation, suicidal ideation Skin exam: PRESENT: dry, intact, warm. ABSENT: cyanosis, rash Results Laboratory Results: WBC 4.8 10^3/uL (4.0-10.5) 08/07/19 06:45 RBC 4.12 10^6/uL (3.72-5.28) 08/07/19 06:45 Hgb 8.0 g/dL (12.0-15.5) L 08/07/19 06:45 Hct 26.3 % (36.0-47.0) L 08/07/19 06:45 MCV 64 fl (80-97) L D 08/07/19 06:45 MCH 19.5 pg (27.0-33.4) L 08/07/19 06:45 MCHC 30.5 g/dL (32.0-36.0) L 08/07/19 06:45 RDW 31.9 % (11.5-14.0) H 08/07/19 06:45 Plt Count 221 10^3/uL (150-450) 08/07/19 06:45 Lymph % (Auto) Not Reportable 08/06/19 12:44 Loving % (Auto) Not Reportable 08/06/19 12:44 Eos % (Auto) Not Reportable 08/06/19 12:44 Baso % (Auto) Not Reportable 08/06/19 12:44 Reticulocyte # 0.054 10^6/uL (0.028-0.122) 08/07/19 06:45 Absolute Neuts (auto) Not Reportable 08/06/19 12:44 Absolute Lymphs (auto) Not Reportable 08/06/19 12:44 Absolute Monos (auto) Not Reportable 08/06/19 12:44 Absolute Eos (auto) Not Reportable 08/06/19 12:44 Absolute Basos (auto) Not Reportable 08/06/19 12:44 Total Counted 100 08/06/19 12:44 Seg Neutrophils % Not Reportable 08/06/19 12:44 Seg Neuts % (Manual) 56 % (42-78) 08/06/19 12:44 Lymphocytes % (Manual) 26 % (13-45) 08/06/19 12:44 Monocytes % (Manual) 7 % (3-13) 08/06/19 12:44 Eosinophils % (Manual) 11 % (0-6) H 08/06/19 12:44 Basophils % (Manual) 0 % (0-2) 08/06/19 12:44 Abs Neuts (Manual) 2.7 10^3/uL (1.7-8.2) 08/06/19 12:44 Abs Lymphs (Manual) 1.2 10^3/uL (0.5-4.7) 08/06/19 12:44 Abs Monocytes (Manual) 0.3 10^3/uL (0.1-1.4) 08/06/19 12:44 Absolute Eos (Manual) 0.5 10^3/uL (0.0-0.6) 08/06/19 12:44 Abs Basophils (Manual) 0.0 10^3/uL (0.0-0.2) 08/06/19 12:44 Platelet Comment ADEQUATE 08/06/19 12:44 Polychromasia SLIGHT 08/06/19 12:44 Hypochromasia 2+ 08/06/19 12:44 Poikilocytosis 2+ 08/06/19 12:44 Anisocytosis 3+ 08/06/19 12:44 Microcytosis 3+ 08/06/19 12:44 Tear Drop Cells 1+ 08/06/19 12:44 Ovalocytes 1+ 08/06/19 12:44 Schistocytes SLIGHT 08/06/19 12:44 Retic Count (auto) 1.31 % (0.66-2.85) 08/07/19 06:45 Sodium 136.1 mmol/L (137-145) L 08/07/19 06:45 Potassium 4.2 mmol/L (3.6-5.0) 08/07/19 06:45 Chloride 109 mmol/L (98-107) H 08/07/19 06:45 Carbon Dioxide 20 mmol/L (22-30) L 08/07/19 06:45 Anion Gap 7 (5-19) 08/07/19 06:45 BUN 14 mg/dL (7-20) 08/07/19 06:45 Creatinine 0.45 mg/dL (0.52-1.25) L 08/07/19 06:45 Est GFR ( Amer) > 60 (>60) 08/07/19 06:45 Est GFR (MDRD) Non-Af > 60 (>60) 08/07/19 06:45 Glucose 90 mg/dL (75-110) 08/07/19 06:45 Calcium 8.3 mg/dL (8.4-10.2) L 08/07/19 06:45 Iron 428.8 ug/dL (37-170) H 08/07/19 06:45 TIBC 443 ug/dL (250-450) 08/07/19 06:45 % Saturation 97 % 08/07/19 06:45 Ferritin 9.35 ng/mL (6.2-137.0) 08/07/19 06:45 Total Bilirubin 0.4 mg/dL (0.2-1.3) 08/06/19 12:44 Direct Bilirubin 0.0 mg/dL (0.0-0.4) 08/06/19 12:44 Neonat Total Bilirubin Not Reportable 08/06/19 12:44 Neonat Direct Bilirubin Not Reportable 08/06/19 12:44 Neonat Indirect Bili Not Reportable 08/06/19 12:44 AST 26 U/L (14-36) 08/06/19 12:44 ALT 11 U/L (<35) 08/06/19 12:44 Alkaline Phosphatase 61 U/L (38-126) 08/06/19 12:44 Total Protein 8.8 g/dL (6.3-8.2) H 08/06/19 12:44 Albumin 4.5 g/dL (3.5-5.0) 08/06/19 12:44 Vitamin B12 364.0 pg/mL (239-931) 08/07/19 06:45 Folate 12.40 ng/mL (>2.76) 08/07/19 06:45 Urine HCG, Qual NEGATIVE (NEGATIVE) 08/06/19 12:20 Slides for Path Review PATHOLOGIST REVIEWED 08/06/19 12:44 Blood Type B POSITIVE 08/06/19 13:15 Antibody Screen NEGATIVE 08/06/19 13:15 Crossmatch See Detail 08/06/19 13:15 Stroke Is this a Stroke Patient?: No Acute Heart Failure - Is this a Heart Failure Patient?: No
== END 2019-08-07 16:40 | disposition home or self-care (01) ==
LOC: ER 09:54 → EH 17:18 → INTOOBSV 17:18 → 2S 18:55
PROVIDERS: ADMIT Internal Medicine; ATTEND Internal Medicine
DX: D62 Acute posthemorrhagic anemia (principal); D25.9 Leiomyoma of uterus, unspecified; N92.4 Excessive bleeding in the premenopausal period; F17.200 Nicotine dependence, unspecified, uncomplicated; K64.9 Unspecified hemorrhoids
CPT/HCPCS: 99283; 86900; 86901; 36415 ×2; 36430; 86850; 82607; 82728; 82746; 83540; 83550; 85025; 85027; 81025; 85045; 80048; 80053; 86920; P9016 ×2; J1756; Q0138; J3490 ×3; J7050; G0378

== ENCOUNTER 2020-03-12 14:10 | Emergency (ER) | payer OTHER ==
--- NOTE | 2020-03-12 15:09 | ER Document Report ---
ED Medical Screen (RME) - General Chief Complaint: Abnormal Lab Results Stated Complaint: ABNORMAL LABS Time Seen by Provider: 03/12/20 15:05 Primary Care Provider: [facility] [Primary Care Provider] - Follow up as needed Mode of Arrival: Ambulatory Information source: Patient Notes: 49-year-old female presented to ED for follow-up of abnormal labs. She went to a follow-up appointment at the [facility]. He henok her blood told her that her hemoglobin was 5.2 and needed a transfusion. [facility] is G[facility]. She states they started her on Provera heavy periods but she just had a. And it was very heavy. She does have a history of anemia. She is alert oriented respirations regular nonlabored speaking in full sentences. States she does not smoke drink or use any illicit drugs. I have greeted and performed a rapid initial assessment of this patient. A comprehensive ED assessment and evaluation of the patient, analysis of test results and completion of medical decision making process will be conducted by an additional ED providers. TRAVEL OUTSIDE OF THE [place] IN LAST 30 DAYS: No - Related Data Allergies/Adverse Reactions: No Known Allergies Allergy (Verified 12/04/17 10:55) Past Medical History Renal/ Medical History: Denies: Hx Peritoneal Dialysis Psychiatric Medical History: Reports: Hx Depression Physical Exam - Vital signs Vitals: Temp Pulse Resp BP Pulse Ox 98.3 F 84 16 120/67 100 03/12/20 14:27 03/12/20 14:27 03/12/20 14:27 03/12/20 14:27 03/12/20 14:27 Course - Vital Signs Vital signs: Temp Pulse Resp BP Pulse Ox 98.3 F 84 16 120/67 100 03/12/20 14:27 03/12/20 14:27 03/12/20 14:27 03/12/20 14:27 03/12/20 14:27 Doctor's Discharge - Discharge Referrals: [facility] [Primary Care Provider] - Follow up as needed
[2020-03-12 16:12] LABS: HEMATOCRIT 23.1 % (36.0-47.0); MEAN CORPUSCULAR HGB CONC 29.8 g/dL (32.0-36.0); PLATELET COUNT 277 10^3/uL (150-450); RED BLOOD COUNT 3.82 10^6/uL (3.72-5.28); RED CELL DISTRIBUTION WIDTH 22.9 % (11.5-14.0); WHITE BLOOD COUNT 7.1 10^3/uL (4.0-10.5)
[2020-03-12 16:13] LABS: APPEARANCE,URINE SLIGHTLY-CLOUDY; BILIRUBIN,URINE NEGATIVE (NEGATIVE); COLOR,URINE YELLOW; GLUCOSE, URINE NEGATIVE (NEGATIVE); KETONES,URINE NEGATIVE (NEGATIVE); LEUKOCYTE ESTERASE,URINE NEGATIVE (NEGATIVE); NITRITE,URINE NEGATIVE (NEGATIVE); PROTEIN,URINE NEGATIVE (NEGATIVE); URINE SPECIFIC GRAVITY 1.023; UROBILINOGEN,URINE NEGATIVE mg/dL (<2.0)
[2020-03-12 16:14] LABS: MEAN CORPUSCULAR VOLUME 60 fl (80-97)
[2020-03-12 16:24] LABS: ALBUMIN 4.3 g/dL (3.5-5.0); ALKALINE PHOSPHATASE 64 U/L (38-126); ANION GAP 8 (5-19); ASPARTATE AMINO TRANSFERASE 18 U/L (14-36); BILIRUBIN,DIRECT 0.2 mg/dL (0.0-0.4); BILIRUBIN,TOTAL 0.2 mg/dL (0.2-1.3); BLOOD UREA NITROGEN 12 mg/dL (7-20); CALCIUM 8.8 mg/dL (8.4-10.2); CARBON DIOXIDE 24 mmol/L (22-30); CHLORIDE 106 mmol/L (98-107); GLUCOSE 87 mg/dL (75-110); POTASSIUM 4.1 mmol/L (3.6-5.0); TOTAL PROTEIN 8.1 g/dL (6.3-8.2)
[2020-03-12 16:27] LABS: ABSOLUTE LYMPHOCYTES# (MANUAL) 1.8 10^3/uL (0.5-4.7); ABSOLUTE MONOCYTES # (MANUAL) 0.3 10^3/uL (0.1-1.4); BAND NEUTROPHILS % (MANUAL) 1 % (3-5); BASOPHILS % (MANUAL) 0 % (0-2); EOSINOPHILS % (MANUAL) 5 % (0-6); LYMPHOCYTES % (MANUAL) 25 % (13-45); MONOCYTES % (MANUAL) 4 % (3-13); SEGMENTED NEUTROPHILS % (MAN) 65 % (42-78); TOTAL CELLS COUNTED 100
[2020-03-12 16:32] LABS: ANISOCYTOSIS 3+; POLYCHROMASIA SLIGHT
[2020-03-12 16:33] LABS: OVALOCYTES SLIGHT; PLATELET COMMENT ADEQUATE; POIKILOCYTOSIS 1+; SCHISTOCYTES SLIGHT; TARGET CELLS SLIGHT; TEAR DROP CELLS SLIGHT
[2020-03-12 16:35] LABS: HEMOGLOBIN 6.9 g/dL (12.0-15.5)
[2020-03-12 16:36] LABS: HYPOCHROMASIA 2+
[2020-03-12] MEDS ORDERED: NORMAL SALINE 250 ML IV PRN ×2 (20:19)
--- NOTE | 2020-03-12 20:30 | ER Document Report ---
ED GI/ - General Chief Complaint: Vaginal Bleeding Stated Complaint: ABNORMAL LABS Time Seen by Provider: 03/12/20 15:05 Primary Care Provider: [facility] [Provider Group] - 03/15/20 [facility] [Primary Care Provider] - Follow up as needed Mode of Arrival: Ambulatory Notes: Patient is a 49-year-old female with history of fibroids who presents emergency department with a low hemoglobin. Patient was seen in the outpatient [facility] and her previous hemoglobin was 8.2 and in the office her hemoglobin was 5.8 today. Patient states that she has some spotting. Denies large amounts of bleeding. Denies any dizziness, shortness of breath, lightheadedness, or any other symptoms. Patient was referred by her [facility] to come to the emergency department for a blood transfusion. Denies any melena stools. Denies any vomiting or nausea. TRAVEL OUTSIDE OF THE [place] IN LAST 30 DAYS: No - Related Data Allergies/Adverse Reactions: No Known Allergies Allergy (Verified 12/04/17 10:55) Past Medical History - General Information source: Patient - Social History Smoking Status: Unknown if Ever Smoked Chew tobacco use (# tins/day): No Frequency of alcohol use: Occasional Drug Abuse: Marijuana Family History: Reviewed & Not Pertinent. denies: Malignancy Renal/ Medical History: Denies: Hx Peritoneal Dialysis Psychiatric Medical History: Reports: Hx Depression Review of Systems - Review of Systems Notes: REVIEW OF SYSTEMS: CONSTITUTIONAL : Denies recent illness. Denies recent unintentional weight loss. Denies fever, chills, or sweats. EENT: Denies eye, ear, throat, or mouth pain, discharge, or symptoms. Denies nasal or sinus congestion. CARDIOVASCULAR: Denies chest pain. RESPIRATORY: Denies shortness of breath, cough, congestion, difficulty breathing, or wheezing. GASTROINTESTINAL: Denies nausea, vomiting, and diarrhea. Denies abdominal pain. Denies constipation. GENITOURINARY: Denies difficulty urinating, burning, blood in urine, urgency or frequency. MUSCULOSKELETAL: Denies neck and back pain. Denies joint pain or swelling. SKIN: Denies rash, itchiness, or lesions HEMATOLOGIC : See HPI. LYMPHATIC: Denies swollen, painful, enlarged glands. NEUROLOGICAL: Denies no numbness or tingling denies weakness. Denies headache. Denies altered mental status. Denies alteration in speech. PSYCHIATRIC: Denies stress, anxiety, alteration in sleep patterns, or depression. All other systems reviewed and negative. Physical Exam - Vital signs Vitals: Temp Pulse Resp BP Pulse Ox 98.3 F 84 16 120/67 100 03/12/20 14:27 03/12/20 14:27 03/12/20 14:27 03/12/20 14:27 03/12/20 14:27 - Notes Notes: PHYSICAL EXAMINATION: GENERAL: Appears well, healthy, well-nourished, no acute distress. HEAD: Normocephalic, atraumatic. EYES: PERRL, conjunctiva normal, all extraocular movements intact, sclera nonicteric ENT: Moist mucous membranes. NECK: Supple, no noticeable swelling, redness, rash. Normal range of motion. LUNGS: Equal breath sounds bilaterally and clear to auscultation. No wheezes rales or rhonchi. CARDIOVASCULAR: S1-S2, regular rate, regular rhythm. Radial pulses 2+, normal. ABDOMEN: Normoactive bowel sounds. Soft, nontender, no guarding, no rebound tenderness, and no masses palpated. EXTREMITIES: Normal strength and range of motion, no pitting or edema. No cyanosis. NEUROLOGICAL: Moves all extremities upon command. Strength 5/5 in all extremities. PSYCH: Normal mood, normal affect. SKIN: Warm, dry. No rash, lesions, ulcerations noted. Normal skin turgor. Course - Re-evaluation Re-evalutation: 03/12/20 20:48 Hematology shows an anemia of 6.9 hemoglobin with hematocrit of 23.1. No leukocytosis noted. Chemistries are unremarkable. hCG is negative. Urinalysis is unremarkable. PRBCs ordered. Will reassess after 2 units transfused. 03/13/20 05:00 She was checked on multiple times throughout her stay by myself. Each time she was not having any shortness of breath or difficulty breathing. Denied any dizziness. Patient's hemoglobin is now 7.9. Patient has a follow-up appointment with her [facility] on Sunday. Patient was grateful for care. Follow- up precautions were given. Verbal discharge instructions were given to the patient. They verbalized understanding. They are stable for discharge. - Vital Signs Vital signs: Temp Pulse Resp BP Pulse Ox 98.7 F 67 18 115/58 L 100 03/13/20 04:11 03/13/20 04:11 03/13/20 04:11 03/13/20 04:11 03/13/20 04:11 - Laboratory Result Diagrams: 03/13/20 04:15 03/12/20 15:40 Laboratory results interpreted by me: 03/12/20 03/12/20 03/12/20 15:40 15:40 15:40 Hgb 6.9 L Hct 23.1 L MCV 60 L MCH 18.0 L MCHC 29.8 L RDW 22.9 H Band Neutrophils % 1 L Neonat Total Bilirubin 0.0 L Urine Ascorbic Acid Crossmatch See Detail 03/12/20 03/13/20 15:40 04:15 Hgb 7.9 L Hct 26.1 L MCV 66 L D MCH 20.0 L MCHC 30.3 L RDW 29.3 H Band Neutrophils % Neonat Total Bilirubin Urine Ascorbic Acid 40 H Crossmatch Discharge - Discharge Clinical Impression: Acute on chronic blood loss anemia Anemia Qualifiers: Anemia type: iron deficiency Iron deficiency anemia type: chronic blood loss Qualified Code(s): D50.0 - Iron deficiency anemia secondary to blood loss ( chronic) Condition: Stable Disposition: HOME, SELF-CARE Additional Instructions: You were seen today in the emergency department for a low hemoglobin level. You were given 2 units of blood. [facility] follow[facility]up with [facility]. Follow-up with your primary care provider as needed. If you develop dizziness, weakness, shortness of breath, difficulty breathing, or worsening symptoms, please return to the emergency department. Referrals: [facility] [Primary Care Provider] - Follow up as needed [facility] [Provider Group] - 03/15/20
[2020-03-13 04:19] VITALS: BP 115/58
[2020-03-13 04:41] LABS: HEMATOCRIT 26.1 % (36.0-47.0); MEAN CORPUSCULAR HGB CONC 30.3 g/dL (32.0-36.0); PLATELET COUNT 189 10^3/uL (150-450); RED BLOOD COUNT 3.94 10^6/uL (3.72-5.28); RED CELL DISTRIBUTION WIDTH 29.3 % (11.5-14.0); WHITE BLOOD COUNT 7.8 10^3/uL (4.0-10.5)
[2020-03-13 05:14] LABS: MEAN CORPUSCULAR VOLUME 66 fl (80-97)
[2020-03-13 05:15] LABS: HEMOGLOBIN 7.9 g/dL (12.0-15.5)
[2020-03-15 15:31] LABS: PATH REVIEW PATHOLOGIST REVIEWED
== END 2020-03-13 05:00 | disposition home or self-care (01) ==
LOC: ER 14:10
DX: D62 Acute posthemorrhagic anemia (principal)
CPT/HCPCS: 99283; 86900; 86901; 36415; 36430; 86850; 84703; 85025; 85027; 80053; 81001; 86920; P9016

== ENCOUNTER 2020-06-29 17:01 | Observation (INO) | payer OTHER ==
[2020-06-29] MEDS ORDERED: ACETAMINOPHEN 325 MG TABLET PO ONE (17:44)
[2020-06-29] MEDS ORDERED: NORMAL SALINE 1000 ML 2,500 ML IV ONE (17:47)
--- NOTE | 2020-06-29 17:49 | ER Document Report ---
ED Medical Screen (RME) - General Chief Complaint: Vaginal Bleeding Stated Complaint: WEAKNESS, DIZZINESS, Time Seen by Provider: 06/29/20 17:41 Primary Care Provider: JOY,GARY [Primary Care Provider] - Follow up as needed Mode of Arrival: Ambulatory Information source: Patient TRAVEL OUTSIDE OF THE [place] IN LAST 30 DAYS: No - HPI Patient complains to provider of: Weakness Notes: 06/29/20 17:48 Patient here with complaints of weakness. Patient has a history of anemia and iron deficiency. States that she started her menstrual cycle on the and it was rather heavy. She has been feeling extra weak and dizzy so she called her doctor and had labs drawn at the [facility] today but does not have the results. She came to the ER today because she was feeling worse. She does complain of a mild cough, she was unaware that she has a fever. No specific Covid exposure. Exam: Nontoxic, no distress. Lungs clear and equal throughout. Tachycardic. Nonfocal neuro exam. An initial examination was made on the patient as part of the triage process, and it was determined a more comprehensive evaluation was necessary. Initial orders were placed and patient was transferred to another provider in the ED who assumed care and finished evaluation and plan. Based on the patient's tachycardia and fever, sepsis order set has been initiated. Have not ordered antibiotics at this point. - Related Data Allergies/Adverse Reactions: No Known Allergies Allergy (Verified 12/04/17 10:55) Home Medications: iron Past Medical History - Social History Chew tobacco use (# tins/day): No Frequency of alcohol use: Rare Drug Abuse: Marijuana Renal/ Medical History: Denies: Hx Peritoneal Dialysis Psychiatric Medical History: Reports: Hx Depression Doctor's Discharge - Discharge [facility]errals: [facility] [[facility] - Follow up as needed
--- NOTE | 2020-06-29 18:32 | RADIOLOGY REPORT (SQ) ---
EXAM DESCRIPTION: CHEST SINGLE VIEW IMAGES COMPLETED DATE/TIME: 06/29/2020 5:58 pm REASON FOR STUDY: Cough, fever, weakness COMPARISON: None. EXAM PARAMETERS: NUMBER OF VIEWS: One view. TECHNIQUE: Single frontal radiographic view of the chest acquired. RADIATION DOSE: NA LIMITATIONS: None. FINDINGS: LUNGS AND PLEURA: Cannot exclude a couple of faint areas of opacification in the right sydnee g. MEDIASTINUM AND HILAR STRUCTURES: No masses. Contour normal. HEART AND VASCULAR STRUCTURES: Heart normal in size. Normal vasculature. BONES: No acute findings. HARDWARE: None in the chest. OTHER: No other significant finding. IMPRESSION: Cannot exclude faintly defined multifocal pneumonia in the right lung. TECHNICAL DOCUMENTATION: JOB ID: [id number] 2010 [employer]- All Rights Reserved Reading location - IP/workstation name: [email or web address]
[2020-06-29 18:41] LABS: ABSOLUTE BASOPHILS # (AUTO) 0.1 10^3/uL (0.0-0.2); ABSOLUTE LYMPHOCYTES (AUTO) 1.4 10^3/uL (0.5-4.7); ABSOLUTE MONOCYTES (AUTO) 0.9 10^3/uL (0.1-1.4); ABSOLUTE NEUT (AUTO) 5.4 10^3/uL (1.7-8.2); BASOPHILS % (AUTO) 1.2 % (0-2); EOSINOPHILS % (AUTO) 0.5 % (0-6); HEMATOCRIT 19.5 % (36.0-47.0); INTERNATIONAL RATION (INR) 1.06; LYMPHOCYTES % (AUTO) 18.3 % (13-45); MEAN CORPUSCULAR HEMOGLOBIN 18.2 pg (27.0-33.4); MEAN CORPUSCULAR HGB CONC 29.5 g/dL (32.0-36.0); MEAN CORPUSCULAR VOLUME 62 fl (80-97); PLATELET COUNT 548 10^3/uL (150-450); RED BLOOD COUNT 3.16 10^6/uL (3.72-5.28); RED CELL DISTRIBUTION WIDTH 20.9 % (11.5-14.0); TOTAL CELLS COUNTED % (AUTO) 100 %; WHITE BLOOD COUNT 7.8 10^3/uL (4.0-10.5)
[2020-06-29 18:42] LABS: VENOUS BLOOD BASE EXCESS -1.2 mmol/L; VENOUS BLOOD HCO3 24.1 mmol/L (20-32); VENOUS BLOOD PCO2 43.8 mmHg (35-63); VENOUS BLOOD PH 7.36 (7.30-7.42)
[2020-06-29 18:45] LABS: HEMOGLOBIN 5.8 g/dL (12.0-15.5)
[2020-06-29 18:48] LABS: APPEARANCE,URINE SLIGHTLY-CLOUDY; BILIRUBIN,URINE NEGATIVE (NEGATIVE); COLOR,URINE YELLOW; GLUCOSE, URINE NEGATIVE (NEGATIVE); KETONES,URINE NEGATIVE (NEGATIVE); PROTEIN,URINE NEGATIVE (NEGATIVE); URINE SPECIFIC GRAVITY 1.009; UROBILINOGEN,URINE NEGATIVE mg/dL (<2.0)
[2020-06-29] MEDS ORDERED: NORMAL SALINE 250 ML IV PRN ×3 (18:51→18:53)
[2020-06-29 18:55] LABS: ALBUMIN 4.2 g/dL (3.5-5.0); ALKALINE PHOSPHATASE 68 U/L (38-126); ANION GAP 7 (5-19); ASPARTATE AMINO TRANSFERASE 24 U/L (14-36); BILIRUBIN,DIRECT 0.1 mg/dL (0.0-0.4); BILIRUBIN,TOTAL 0.3 mg/dL (0.2-1.3); BLOOD UREA NITROGEN 8 mg/dL (7-20); CALCIUM 8.6 mg/dL (8.4-10.2); CARBON DIOXIDE 26 mmol/L (22-30); CHLORIDE 102 mmol/L (98-107); GLUCOSE 107 mg/dL (75-110); POTASSIUM 3.9 mmol/L (3.6-5.0)
[2020-06-29 19:05] LABS: ANISOCYTOSIS 2+; POLYCHROMASIA 1+
[2020-06-29 19:06] LABS: HYPOCHROMASIA 3+; OVALOCYTES 2+; PLATELET CLUMPS PRESENT; PLATELET COMMENT ADEQUATE
--- NOTE | 2020-06-29 21:54 | EKG REPORT ---
SEVERITY:- BORDERLINE ECG - SINUS RHYTHM PROBABLE LEFT ATRIAL ABNORMALITY MILD NONSPECIFIC ST-T CHANGES : Confirmed by: Philip Oneill MD 29-Jun-2020 21:53:18
[2020-06-29] MEDS ORDERED: NORMAL SALINE 1000 ML 1,000 ML IV ONE (23:11)
--- NOTE | 2020-06-29 23:40 | ER Document Report ---
ED General - General Chief Complaint: Vaginal Bleeding Stated Complaint: WEAKNESS, DIZZINESS, Time Seen by Provider: 06/29/20 17:41 Primary Care Provider: JOY,GARY [Primary Care Provider] - Follow up as needed Mode of Arrival: Ambulatory Notes: 49-year-old female with history of fibroids, menorrhagia with multiple prior transfusions in past in the process of being scheduled for partial hysterectomy presents with dizziness and generalized weakness for the past few days worse for the past day associated with her menses which began on June 21, 2020 and consisted of heavy bleeding of approximately soaking 6 pads and tampons used simultaneously per day for approximately 6 days with bleeding almost stopped now with very scant spotting currently. Patient says that these of symptoms that she has had in the past when he is she has needed transfusions for her menstrual bleeding. Patient otherwise feels well. Patient denies any diarrhea, black stool, bloody stool, abdominal pain, vomiting, hematuria, bleeding diatheses, anticoagulation, syncope, trauma, fever, recent illness, pelvic pain TRAVEL OUTSIDE OF THE [place] IN LAST 30 DAYS: No - Related Data Allergies/Adverse Reactions: No Known Allergies Allergy (Verified 12/04/17 10:55) Home Medications: iron Past Medical History - General Information source: Patient - Social History Smoking Status: Former Smoker Chew tobacco use (# tins/day): No Frequency of alcohol use: Rare Drug Abuse: Marijuana Family History: Reviewed & Not Pertinent. denies: Malignancy Renal/ Medical History: Denies: Hx Peritoneal Dialysis Psychiatric Medical History: Reports: Hx Depression Review of Systems - Review of Systems Notes: REVIEW OF SYSTEMS: CONSTITUTIONAL : Denies fever, chills, or sweats. EENT: Denies recent cold/sinus symptoms, denies throat pain CARDIOVASCULAR: Denies chest pain, DUNG RESPIRATORY: +cough, denies shortness of breath. GASTROINTESTINAL: Denies abdominal pain, nausea/vomiting. GENITOURINARY: Denies difficulty urinating, painful urination. FEMALE GENITOURINARY: + abnormal vaginal bleeding, -vaginal discharge. MUSCULOSKELETAL: Denies neck pain, back pain. SKIN: Denies rash or skin lesions. HEMATOLOGIC : Denies easy bruising or bleeding. LYMPHATIC: Denies swollen, enlarged glands. NEUROLOGICAL: Denies headache, denies change in gait. PSYCHIATRIC: Denies anxiety or stress or depression. Physical Exam - Vital signs Vitals: Pulse Resp BP Pulse Ox 80 19 115/67 100 06/29/20 23:39 06/29/20 23:39 06/29/20 23:39 06/29/20 23:39 - Notes Notes: PHYSICAL EXAMINATION: GENERAL: Very well-appearing, well-nourished, talkative pleasant energetic appearing adult female with no visible signs of discomfort and in no acute distress. HEAD: Atraumatic, normocephalic. EYES: Pupils equal round and appropriate constriction, sclera anicteric, conjunctiva are pale ENT: nares patent, moist mucous membranes. NECK: Normal range of motion, supple without lymphadenopathy LUNGS: Breath sounds clear to auscultation bilaterally and equal. No wheezes rales or rhonchi. Normal respiratory rate and effort HEART: Mildly tachycardic, regular rhythm, no murmurs ABDOMEN: Soft, nontender, no guarding, no masses, no CVAT EXTREMITIES: Normal range of motion, no pitting or edema. No cyanosis. NEUROLOGICAL: Awake, alert, conversing appropriately, moves all extremities spontaneously. PSYCH: Normal mood, normal affect. SKIN: Warm, Dry, normal turgor, no rashes or lesions noted. Course - Re-evaluation Re-evalutation: 06/29/20 23:45 Patient with generalized weakness worsened today which has been gradually worsening over the course of her recent heavy period which is now nearly stopped. Patient able to give reliable history and no indication for pelvic exam at this time. Patient tachycardic likely secondary to significant anemia. Patient does endorse a dry cough for the past day and there is report and notes that patient had fever at some point although this temperature is not recorded. Patient denies having felt febrile and cough has been very mild, will send Covid test but no signs of pneumonia on history or physical exam. Given that patient has long established diagnosis causing her bleeding and the current symptoms are consistent with this will transfuse patient in the emergency department recheck CBC and discharge with outpatient gynecology follow-up. This is appropriate as patient's bleeding has nearly ceased at this time. 06/30/20 05:39 After hydration and 2 units of PRBCs patient's tachycardia completely resolved however hemoglobin only went up by 0.3, this is likely due to patient's initial dehydration from blood loss with now hemodilution. Performed pelvic exam and patient has very scant bleeding currently and enlarged fibroid uterus. Also performed guaiac exam which was negative. Discussed case with Dr. Guy who has accepted patient to [facility] for repeat transfusion if patient's Covid test is negative. Dr. Guy says that [facility] does not have the capacity to accept Covid positive patients currently so we will hold patient in the ED until Covid test is negative. I spoke to Dr. Vang who says that his service will accept patient if her Covid test is positive. Signed patient out to Dr. Paz pending Covid test result which lab says should result in approximately 1 hour. Discussed with patient's nurse and asked not to let patient moved to the [facility] floor until Covid test results and is negative. If Covid test is positive Dr. Paz will call hospitalist and inform him and change admission to Dr. Vang. Dr. Guy came to ED and recommended that if pt is COVID positive and goes to hospitalist and has recurrent bleeding to give TXA PO (1300 mg PO TID prn vaginal bleeding max 5 days). - Vital Signs Vital signs: Temp Pulse Resp BP Pulse Ox 87 16 95/77 L 100 06/30/20 03:20 06/30/20 04:30 06/30/20 04:30 06/30/20 04:30 - Laboratory Results Result Diagrams: 06/30/20 03:50 06/29/20 18:00 Laboratory Results Interpreted: 06/29/20 06/29/20 06/29/20 18:00 18:00 18:00 RBC 3.16 L Hgb 5.8 L Hct 19.5 L MCV 62 L MCH 18.2 L MCHC 29.5 L RDW 20.9 H Plt Count 548 H Wilkes % (Auto) Sodium 135.3 L Urine Blood MODERATE H Leukocyte Esterase Rfl MODERATE H Crossmatch 06/29/20 06/30/20 19:37 03:50 RBC 3.08 L Hgb 6.1 L Hct 19.8 L MCV 64 L MCH 19.7 L MCHC 30.6 L RDW 23.6 H Plt Count Wilkes % (Auto) 17.4 H Sodium Urine Blood Leukocyte Esterase Rfl Crossmatch See Detail Critical Laboratory Results Reviewed: No Critical Results - Radiology Results Critical Radiology Results Reviewed: No Critical Results - EKG Interpretation by Me Additional EKG results interpreted by me: 06/30/20 06:28 Sinus rhythm, no significant ST elevations or depressions, no significant T wave abnormalities Discharge - Discharge Clinical Impression: Dehydration Menorrhagia Qualifiers: Menorrhagia type: with irregular cycle Qualified Code(s): N92.1 - Excessive and frequent menstruation with irregular cycle Disposition: ADMITTED OBSERVATION Admitting Provider: [facility] Admitted: Labor and Delivery [facility]: [facility] [[facility] - Follow up as needed
[2020-06-30] MEDS ORDERED: ACETAMINOPHEN 325 MG TABLET PO ONE (00:15)
[2020-06-30 04:34] LABS: ABSOLUTE BASOPHILS # (AUTO) 0.1 10^3/uL (0.0-0.2); ABSOLUTE EOSINOPHILS # (AUTO) 0.1 10^3/uL (0.0-0.6); ABSOLUTE LYMPHOCYTES (AUTO) 0.8 10^3/uL (0.5-4.7); ABSOLUTE MONOCYTES (AUTO) 0.9 10^3/uL (0.1-1.4); ABSOLUTE NEUT (AUTO) 3.3 10^3/uL (1.7-8.2); BASOPHILS % (AUTO) 1.6 % (0-2); EOSINOPHILS % (AUTO) 1.3 % (0-6); HEMATOCRIT 19.8 % (36.0-47.0); MEAN CORPUSCULAR HEMOGLOBIN 19.7 pg (27.0-33.4); MEAN CORPUSCULAR HGB CONC 30.6 g/dL (32.0-36.0); MEAN CORPUSCULAR VOLUME 64 fl (80-97); MONOCYTES % (AUTO) 17.4 % (3-13); PLATELET COUNT 414 10^3/uL (150-450); RED BLOOD COUNT 3.08 10^6/uL (3.72-5.28); RED CELL DISTRIBUTION WIDTH 23.6 % (11.5-14.0); SEGMENTED NEUTROPHILS % (AUTO) 63.7 % (42-78); TOTAL CELLS COUNTED % (AUTO) 100 %; WHITE BLOOD COUNT 5.1 10^3/uL (4.0-10.5)
[2020-06-30 04:57] LABS: HEMOGLOBIN 6.1 g/dL (12.0-15.5)
[2020-06-30 04:59] LABS: ANISOCYTOSIS 3+; OVALOCYTES SLIGHT; POIKILOCYTOSIS SLIGHT; TEAR DROP CELLS SLIGHT
[2020-06-30 05:00] LABS: HYPOCHROMASIA 2+; PLATELET COMMENT ADEQUATE; POLYCHROMASIA SLIGHT
[2020-06-30] MEDS ORDERED: ACETAMINOPHEN 325 MG TABLET PO PRN (09:07)
[2020-06-30] MEDS ORDERED: ONDANSETRON 4 MG TAB.RAPDIS PO PRN (09:07)
--- NOTE | 2020-06-30 09:31 | PDOC H&P ---
History of Present Illness Admission Date/PCP: 06/30/20 06:47 [facility] Patient complains of: Menorrhagia History of Present Illness: GREGORY LUJAN is a 49 year old female with history of menorrhagia. She has required transfusions in the past. She is currently working on scheduling a hysterectomy electively. The patient typically has very heavy bleeding. On this occasion she began to feel quite weak. Blood was drawn at her primary care provider's office. It is not clear if she was called by the primary care with the lab results and told to go the emergency department or if she was just feeling poorly and went to the emergency department. Regardless her hemoglobin was only 5.8. She states normally at baseline it tends to be in the high sevens or low eights. She received 1 unit of packed red blood cells and her hemoglobin only went up to 6.1. I have ordered 2 more units of packed cells to be given. I did talk to gynecology. They in fact provided a treatment plan. If the patient is actively bleeding I should give her 1 g of tranexamic acid IV. If in fact the bleeding is stable she could discharge post transfusion. I will give her a prescription for tranexamic acid 650 mg with directions to take 2 tablets 3 times a day for 5 days at the beginning of her disease. This should decrease the amount of bleeding. The patient did have a cough but no fever. Oxygen saturation was 100% on room air. She recently traveled to [place]. They did actually perform Covid testing and she did test positive. In addition to her oral iron supplement I will administer vitamin C, vitamin D and zinc sulfate. As she will likely be going home later today I have not ordered any melatonin. At this point her clinical presentation does not require any additional treatment such as steroids, remdesivir or ivermectin. Past Medical History Cardiac Medical History: Denies: Atrial Fibrillation, Congestive Heart Failure, Coronary Artery Disease Pulmonary Medical History: Denies: Asthma, Chronic Obstructive Pulmonary Disease (COPD), Respiratory Failure EENT Medical History: Reports: None Neurological Medical History: Denies: Hemorrhagic CVA, Ischemic CVA, Migraine Endocrine Medical History: Denies: Diabetes Mellitus Type 1, Diabetes Mellitus Type 2, Gestational Diabetes, Hypothyroidism Renal/ Medical History: Reports: Other - Menorrhagia Denies: Chronic Kidney Disease Malignancy Medical History: Reports: None GI Medical History: Denies: Crohn's Disease, Gastroesophageal Reflux Disease, Peptic Ulcer Disease Musculoskeltal Medical History: Denies: Arthritis, Fibromyalgia Skin Medical History: Denies: Eczema, Psoriasis Psychiatric Medical History: Reports: Depression Hematology: Reports: Anemia Infectious Medical History: Reports: None Past Surgical History Past Surgical History: Reports: None Social History Smoking Status: Former Smoker Electronic Cigarette use?: No Frequency of Alcohol Use: Social Hx Recreational Drug Use: Yes Drugs: Marijuana Hx Prescription Drug Abuse: No - Advance Directive Resuscitation Status: Full Code Surrogate healthcare decision maker:: Her Eduardo Family History Family History: Reviewed & Not Pertinent. denies: Malignancy Parental Family History Reviewed: Yes Children Family History Reviewed: Yes Sibling(s) Family History Reviewed.: Yes Medication/Allergy Home Medications: Ferrous Gluconate 324 mg PO Q12 08/06/19 Acetaminophen [Tylenol 325 mg Tablet] 650 mg PO Q4HP PRN tablet 08/07/19 Multivitamin [Tab-A-Charanjit (Multiple Vitamin) Tablet] 1 tab PO DAILY #90 tablet 08/07/19 Allergies/Adverse Reactions: No Known Allergies Allergy (Verified 12/04/17 10:55) Review of Systems All systems: reviewed and no additional remarkable complaints except as stated Constitutional: PRESENT: fatigue Respiratory: PRESENT: cough Genitourinary: PRESENT: other - Menorrhagia Physical Exam Vital Signs: Temp Pulse Resp BP Pulse Ox 87 16 95/77 L 100 06/30/20 03:20 06/30/20 04:30 06/30/20 04:30 06/30/20 04:30 Intake & Output 06/29/20 06/30/20 07/01/20 06:59 06:59 06:59 Intake Total 1000 Balance 1000 Weight 78.4 kg General appearance: PRESENT: no acute distress, cooperative, well-developed, well-nourished Head exam: PRESENT: atraumatic, normocephalic Eye exam: PRESENT: conjunctiva pale, EOMI, PERRLA. ABSENT: scleral icterus Ear exam: PRESENT: normal external ear exam. ABSENT: bleeding, drainage Mouth exam: PRESENT: moist, tongue midline Teeth exam: ABSENT: poor dentation Neck exam: ABSENT: carotid bruit, JVD, lymphadenopathy Respiratory exam: PRESENT: clear to auscultation felipe, symmetrical, unlabored. ABSENT: accessory muscle use, chest wall tenderness, prolonged expiratory phas, rales, rhonchi, tachypnea, wheezes Cardiovascular exam: PRESENT: RRR, +S1, +S2, systolic murmur - 2/6. ABSENT: bradycardia, diastolic murmur, tachycardia GI/Abdominal exam: PRESENT: normal bowel sounds, soft. ABSENT: distended, guarding, tenderness Rectal exam: PRESENT: deferred Gentrourinary exam: PRESENT: other - Pelvic exam not performed during this encounter. See emergency department physician notes.. ABSENT: indwelling catheter Extremities exam: PRESENT: full ROM. ABSENT: calf tenderness, joint swelling, pedal edema Musculoskeletal exam: PRESENT: ambulatory, full ROM, normal inspection. ABSENT: deformity, dislocation Neurological exam: PRESENT: alert, awake, oriented to person, oriented to place, oriented to time, oriented to situation, CN II-XII grossly intact. ABSENT: altered, motor sensory deficit Psychiatric exam: PRESENT: appropriate affect. ABSENT: agitated, anxious Focused psych exam: ABSENT: delusional, paranoid, restlessness Skin exam: PRESENT: dry, normal color, warm. ABSENT: rash Results Laboratory Results: 06/30/20 03:50 06/29/20 18:00 06/29/20 06/29/20 06/29/20 18:00 18:00 18:00 WBC 7.8 RBC 3.16 L Hgb 5.8 L Hct 19.5 L MCV 62 L MCH 18.2 L MCHC 29.5 L RDW 20.9 H Plt Count 548 H Seg Neutrophils % 69.0 VBG pH 7.36 VBG pCO2 43.8 VBG HCO3 24.1 VBG Base Excess -1.2 Sodium 135.3 L Potassium 3.9 Chloride 102 Carbon Dioxide 26 Anion Gap 7 BUN 8 Creatinine 0.82 Est GFR ( Amer) > 60 Glucose 107 Lactic Acid Calcium 8.6 Magnesium 2.1 Total Bilirubin 0.3 AST 24 Alkaline Phosphatase 68 Total Protein 8.0 Albumin 4.2 Serum HCG, Qual Urine Color Urine Appearance Urine pH Ur Specific [place] Urine Protein Urine Glucose (UA) Urine Ketones Urine Blood Urine RBC (Auto) Blood Type Antibody Screen 06/29/20 06/29/20 06/29/20 18:00 18:00 18:00 WBC RBC Hgb Hct MCV MCH MCHC RDW Plt Count Seg Neutrophils % VBG pH VBG pCO2 VBG HCO3 VBG Base Excess Sodium Potassium Chloride Carbon Dioxide Anion Gap BUN Creatinine Est GFR ( Amer) Glucose Lactic Acid 1.2 Calcium Magnesium Total Bilirubin AST Alkaline Phosphatase Total Protein Albumin Serum HCG, Qual NEGATIVE Urine Color YELLOW Urine Appearance SLIGHTLY-CLOUDY Urine pH 6.0 Ur Specific [place] 1.009 Urine Protein NEGATIVE Urine Glucose (UA) NEGATIVE Urine Ketones NEGATIVE Urine Blood MODERATE H Urine RBC (Auto) 3 Blood Type Antibody Screen 06/29/20 06/29/20 06/30/20 19:37 21:45 03:50 WBC 5.1 RBC 3.08 L Hgb 6.1 L Hct 19.8 L MCV 64 L MCH 19.7 L MCHC 30.6 L RDW 23.6 H Plt Count 414 Seg Neutrophils % 63.7 VBG pH VBG pCO2 VBG HCO3 VBG Base Excess Sodium Potassium Chloride Carbon Dioxide Anion Gap BUN Creatinine Est GFR ( Amer) Glucose Lactic Acid 0.7 Calcium Magnesium Total Bilirubin AST Alkaline Phosphatase Total Protein Albumin Serum HCG, Qual Urine Color Urine Appearance Urine pH Ur Specific [place] Urine Protein Urine Glucose (UA) Urine Ketones Urine Blood Urine RBC (Auto) Blood Type B POSITIVE Antibody Screen NEGATIVE 06/29/20 18:05 Troponin I < 0.012 Impressions: Chest X-Ray 06/29/20 17:45 IMPRESSION: Cannot exclude faintly defined multifocal pneumonia in the right lung. Assessment and Plan - Diagnosis (1) Menorrhagia Qualifiers: Menorrhagia type: with irregular cycle Qualified Code(s): N92.1 - Excessive and frequent menstruation with irregular cycle Is this a current diagnosis for this admission?: Yes (2) Acute on chronic blood loss anemia Is this a current diagnosis for this admission?: Yes (3) Iron deficiency anemia due to chronic blood loss Is this a current diagnosis for this admission?: Yes (4) Lab test positive for detection of COVID-19 virus Is this a current diagnosis for this admission?: Yes (5) Systolic murmur Is this a current diagnosis for this admission?: Yes - Plan Summary Summary: (1) Menorrhagia Qualifiers: Menorrhagia type: with irregular cycle Qualified Code(s): N92.1 - Excessive and frequent menstruation with irregular cycle Is this a current diagnosis for this admission?: Yes (2) Acute on chronic blood loss anemia Is this a current diagnosis for this admission?: Yes (3) Iron deficiency anemia due to chronic blood loss Is this a current diagnosis for this admission?: Yes (4) Lab test positive for detection of COVID-19 virus Is this a current diagnosis for this admission?: Yes (5) Systolic murmur Is this a current diagnosis for this admission?: Yes 06/30/2020 Menorrhagia-the patient has a history of menorrhagia. She has been struggling with this for several years. It has worsened recently. She was working on elective surgery for hysterectomy. She received 1 unit of packed red blood cells her hemoglobin only went from 5.8-6.1. This is likely due to the IV fluids that she received. I did speak with gynecology. If the patient is actively bleeding (which she is not currently) she can be transfused and sent home. When she goes home I should provide a prescription for 650 mg tranexamic acid tablets. She should take 2 tablets 3 times a day for 5 days at the beginning of her next menses. This in fact is the routine outpatient therapy that gynecology typically provides. She should continue to work on setting up elective hysterectomy. Acute on chronic blood loss anemia-the patient's hemoglobin typically runs about 8.0 with lows below 6. I hemoglobin typically does not reach above 9. She will be transfused a total of 3 units of packed red blood cells and unless there is any complication I will discharge her to home. Iron deficiency-I will continue her iron supplement twice daily. She will take vitamin C with each iron tablet. No need for IV iron as the packed red blood cells will provide iron as well. Positive [id number] patient had a cough and travel to [place] last week. The patient did test positive for COVID-19. Her only symptom is a cough. She is saturating 100% on room air. She has no fever. She has no elevated white blood cell count. D-dimer was not tested however she could not receive any anticoagulation due to her menorrhagia. She is already on vitamin C. I will add vitamin D and zinc. She should not be here overnight but if she is I will add melatonin. At this point I do not believe there is a clinical indication for any additional treatment. Systolic murmur-the patient did have a very subtle systolic murmur. At this point it may be just a flow murmur due to physiologic demands. No additional testing is required at this time. I did have a chance to call the patient's Eduardo Lujan. I informed him of the treatment plan. I also informed him of the positive Covid results. We briefly discussed quarantining at home post discharge. He understands that there will need to be separation for 14 days. I also reported that she will have the typical Covid discharge information regarding quarantine and activities at home. There are 2 children are grown and out of the house so this should not be an issue. - Time Time Spent with patient: 35 or more minutes Medications reviewed and adjusted accordingly: Yes Anticipated Discharge Disposition: Home, Self Care Anticipated Discharge Timeframe: within 24 hours
[2020-06-30] MEDS ORDERED: ZINC SULFATE 220 MG CAPSULE PO SCH (10:00)
[2020-06-30] MEDS ORDERED: FAMOTIDINE 20 MG TABLET PO SCH (10:00)
[2020-06-30] MEDS ORDERED: CHOLECALCIFEROL (D3) 1,000 UNIT (25 MCG) TABLET PO SCH (10:00)
[2020-06-30] MEDS ORDERED: MULTIVITAMIN TABLET PO SCH (10:00)
--- NOTE | 2020-06-30 15:22 | PDOC DISCHARGE SUMMARY ---
Impression - Admit/DC Date/PCP Admission Date/Primary Care Provider: 06/30/20 06:[facility] Discharge Date: 06/30/20 - Discharge Diagnosis (1) Menorrhagia Is this a current diagnosis for this admission?: Yes (2) Acute on chronic blood loss anemia Is this a current diagnosis for this admission?: Yes (3) Iron deficiency anemia due to chronic blood loss Is this a current diagnosis for this admission?: Yes (4) Lab test positive for detection of COVID-19 virus Is this a current diagnosis for this admission?: Yes (5) Systolic murmur Is this a current diagnosis for this admission?: Yes - Assessment Summary: (1) Menorrhagia Qualifiers: Menorrhagia type: with irregular cycle Qualified Code(s): N92.1 - Excessive and frequent menstruation with irregular cycle Is this a current diagnosis for this admission?: Yes (2) Acute on chronic blood loss anemia Is this a current diagnosis for this admission?: Yes (3) Iron deficiency anemia due to chronic blood loss Is this a current diagnosis for this admission?: Yes (4) Lab test positive for detection of COVID-19 virus Is this a current diagnosis for this admission?: Yes (5) Systolic murmur Is this a current diagnosis for this admission?: Yes 06/30/2020 Menorrhagia-the patient has a history of menorrhagia. She has been struggling with this for several years. It has worsened recently. She was working on elective surgery for hysterectomy. She received 1 unit of packed red blood cells her hemoglobin only went from 5.8-6.1. This is likely due to the IV fluids that she received. I did speak with gynecology. If the patient is actively bleeding (which she is not currently) she can be transfused and sent home. When she goes home I should provide a prescription for 650 mg tranexamic acid tablets. She should take 2 tablets 3 times a day for 5 days at the beginning of her next menses. This in fact is the routine outpatient therapy that gynecology typically provides. She should continue to work on setting up elective hysterectomy. Acute on chronic blood loss anemia-the patient's hemoglobin typically runs about 8.0 with lows below 6. I hemoglobin typically does not reach above 9. She will be transfused a total of 3 units of packed red blood cells and unless there is any complication I will discharge her to home. Iron deficiency-I will continue her iron supplement twice daily. She will take vitamin C with each iron tablet. No need for IV iron as the packed red blood cells will provide iron as well. Positive [id number] patient had a cough and travel to [place] last week. The patient did test positive for COVID-19. Her only symptom is a cough. She is saturating 100% on room air. She has no fever. She has no elevated white blood cell count. D-dimer was not tested however she could not receive any anticoagulation due to her menorrhagia. She is already on vitamin C. I will add vitamin D and zinc. She should not be here overnight but if she is I will add melatonin. At this point I do not believe there is a clinical indication for any additional treatment. Systolic murmur-the patient did have a very subtle systolic murmur. At this point it may be just a flow murmur due to physiologic demands. No additional testing is required at this time. I did have a chance to call the patient's Eduardo Lujan. I informed him of the treatment plan. I also informed him of the positive Covid results. We briefly discussed quarantining at home post discharge. He understands that there will need to be separation for 14 days. I also reported that she will have the typical Covid discharge information regarding quarantine and activities at home. There are 2 children are grown and out of the house so this should not be an issue. - Additional Information Resuscitation Status: Full Code Discharge Diet: As Tolerated Discharge Activity: Activity As Tolerated [facility] [[facility]] - Follow up as needed Prescriptions: Tranexamic Acid 1,300 mg PO TID 5 Days #30 tablet Home Medications: Ferrous Gluconate 324 mg PO Q12 08/06/19 Acetaminophen [Tylenol 325 mg Tablet] 650 mg PO Q4HP PRN tablet 08/07/19 Multivitamin [Tab-A-Charanjit (Multiple Vitamin) Tablet] 1 tab PO DAILY #90 tablet 08/07/19 Ascorbic Acid [Vitamin C 500 mg Tablet] 500 mg PO BIDPCBS tablet 06/30/20 Cholecalciferol (Vitamin D3) [Vitamin D3 1000 Unit Tablet] 1,000 unit PO DAILY tablet 06/30/20 Ferrous Sulfate [Feosol 325 mg Tablet] 325 mg PO BIDPCBS tablet 06/30/20 Multivitamin [Tab-A-Charanjit (Multiple Vitamin) Tablet] 1 tab PO DAILY tablet 06/30/20 Tranexamic Acid 1,300 mg PO TID 5 Days #30 tablet 06/30/20 Zinc Sulfate [Zinc-220 Capsule] 220 mg PO DAILY capsule 06/30/20 History of Present Illiness History of Present Illness: GREGORY LUJAN is a 49 year old female with history of menorrhagia. She has r equired transfusions in the past. She is currently working on scheduling a hysterectomy electively. The patient typically has very heavy bleeding. On this occasion she began to feel quite weak. Blood was drawn at her primary care provider's office. It is not clear if she was called by the primary care with the lab results and told to go the emergency department or if she was just feeling poorly and went to the emergency department. Regardless her hemoglobin was only 5.8. She states normally at baseline it tends to be in the high sevens or low eights. She received 1 unit of packed red blood cells and her hemoglobin only went up to 6.1. I have ordered 2 more units of packed cells to be given. I did talk to gynecology. They in fact provided a treatment plan. If the patient is actively bleeding I should give her 1 g of tranexamic acid IV. If in fact the bleeding is stable she could discharge post transfusion. I will give her a prescription for tranexamic acid 650 mg with directions to take 2 tablets 3 times a day for 5 days at the beginning of her disease. This should decrease the amount of bleeding. The patient did have a cough but no fever. Oxygen saturation was 100% on room air. She recently traveled to [place]. They did actually perform Covid testing and she did test positive. In addition to her oral iron supplement I will administer vitamin C, vitamin D and zinc sulfate. As she will likely be going home later today I have not ordered any melatonin. At this point her clinical presentation does not require any additional treatment such as steroids, remdesivir or ivermectin. Hospital Course Hospital Course: Unremarkable. Patient received total of 3 units packed red blood cells (2 of those units were given today) and will be discharged home. She is aware that she is Covid positive. She needs to follow the Department of Health quarantine directions at home. Her is aware of the diagnosis. Physical Exam Vital Signs: Temp Pulse Resp BP Pulse Ox 97.6 F 84 17 135/85 H 100 06/30/20 14:05 06/30/20 14:05 06/30/20 14:05 06/30/20 14:05 06/30/20 14:05 Intake & Output 06/29/20 06/30/20 07/01/20 06:59 06:59 06:59 Intake Total 1000 560 Balance 1000 560 Weight 78.4 kg General appearance: PRESENT: no acute distress, cooperative Respiratory exam: PRESENT: clear to auscultation felipe, symmetrical, unlabored. ABSENT: crackles, rales, rhonchi, stridor, tachypnea Cardiovascular exam: PRESENT: RRR, +S1, +S2, systolic murmur - 2/6 GI/Abdominal exam: PRESENT: normal bowel sounds, soft. ABSENT: distended, guarding, tenderness Rectal exam: PRESENT: deferred Gentrourinary exam: ABSENT: indwelling catheter Extremities exam: PRESENT: full ROM. ABSENT: calf tenderness, joint swelling, pedal edema Musculoskeletal exam: PRESENT: ambulatory, normal inspection. ABSENT: deformity, dislocation Neurological exam: PRESENT: alert, awake, oriented to person, oriented to place, oriented to time, oriented to situation, CN II-XII grossly intact, motor sensory deficit. ABSENT: altered Psychiatric exam: PRESENT: appropriate affect. ABSENT: agitated, anxious Focused psych exam: ABSENT: delusional, paranoid, restlessness Results Laboratory Results: WBC 5.1 10^3/uL (4.0-10.5) 06/30/20 03:50 RBC 3.08 10^6/uL (3.72-5.28) L 06/30/20 03:50 Hgb 6.1 g/dL (12.0-15.5) L 06/30/20 03:50 Hct 19.8 % (36.0-47.0) L 06/30/20 03:50 MCV 64 fl (80-97) L 06/30/20 03:50 MCH 19.7 pg (27.0-33.4) L 06/30/20 03:50 MCHC 30.6 g/dL (32.0-36.0) L 06/30/20 03:50 RDW 23.6 % (11.5-14.0) H 06/30/20 03:50 Plt Count 414 10^3/uL (150-450) 06/30/20 03:50 Lymph % (Auto) 16.0 % (13-45) 06/30/20 03:50 [place] % (Auto) 17.4 % (3-13) H 06/30/20 03:50 Eos % (Auto) 1.3 % (0-6) 06/30/20 03:50 Baso % (Auto) 1.6 % (0-2) 06/30/20 03:50 Absolute Neuts (auto) 3.3 10^3/uL (1.7-8.2) 06/30/20 03:50 Absolute Lymphs (auto) 0.8 10^3/uL (0.5-4.7) 06/30/20 03:50 Absolute Monos (auto) 0.9 10^3/uL (0.1-1.4) 06/30/20 03:50 Absolute Eos (auto) 0.1 10^3/uL (0.0-0.6) 06/30/20 03:50 Absolute Basos (auto) 0.1 10^3/uL (0.0-0.2) 06/30/20 03:50 Seg Neutrophils % 63.7 % (42-78) 06/30/20 03:50 Clumped Platelets PRESENT 06/29/20 18:00 Platelet Comment ADEQUATE 06/30/20 03:50 Polychromasia SLIGHT 06/30/20 03:50 Hypochromasia 2+ 06/30/20 03:50 Poikilocytosis SLIGHT 06/30/20 03:50 Anisocytosis 3+ 06/30/20 03:50 Microcytosis 3+ 06/30/20 03:50 Tear Drop Cells SLIGHT 06/30/20 03:50 Ovalocytes SLIGHT 06/30/20 03:50 PT 14.0 SEC (11.4-15.4) 06/29/20 18:00 INR 1.06 06/29/20 18:00 VBG pH 7.36 (7.30-7.42) 06/29/20 18:00 VBG pCO2 43.8 mmHg (35-63) 06/29/20 18:00 VBG HCO3 24.1 mmol/L (20-32) 06/29/20 18:00 VBG Base Excess -1.2 mmol/L 06/29/20 18:00 Sodium 135.3 mmol/L (137-145) L 06/29/20 18:00 Potassium 3.9 mmol/L (3.6-5.0) 06/29/20 18:00 Chloride 102 mmol/L (98-107) 06/29/20 18:00 Carbon Dioxide 26 mmol/L (22-30) 06/29/20 18:00 Anion Gap 7 (5-19) 06/29/20 18:00 BUN 8 mg/dL (7-20) 06/29/20 18:00 Creatinine 0.82 mg/dL (0.52-1.25) 06/29/20 18:00 Est GFR ( Amer) > 60 (>60) 06/29/20 18:00 Est GFR (MDRD) Non-Af > 60 (>60) 06/29/20 18:00 Glucose 107 mg/dL (75-110) 06/29/20 18:00 Lactic Acid 0.7 mmol/L (0.7-2.1) 06/29/20 21:45 Calcium 8.6 mg/dL (8.4-10.2) 06/29/20 18:00 Magnesium 2.1 mg/dL (1.6-2.3) 06/29/20 18:00 Total Bilirubin 0.3 mg/dL (0.2-1.3) 06/29/20 18:00 Direct Bilirubin 0.1 mg/dL (0.0-0.4) 06/29/20 18:00 Neonat Total Bilirubin Not Reportable 06/29/20 18:00 Neonat Direct Bilirubin Not Reportable 06/29/20 18:00 Neonat Indirect Bili Not Reportable 06/29/20 18:00 AST 24 U/L (14-36) 06/29/20 18:00 ALT 12 U/L (<35) 06/29/20 18:00 Alkaline Phosphatase 68 U/L (38-126) 06/29/20 18:00 Troponin I < 0.012 ng/mL 06/29/20 18:05 Total Protein 8.0 g/dL (6.3-8.2) 06/29/20 18:00 Albumin 4.2 g/dL (3.5-5.0) 06/29/20 18:00 Serum HCG, Qual NEGATIVE (NEGATIVE) 06/29/20 18:00 Urine Color YELLOW 06/29/20 18:00 Urine Appearance SLIGHTLY-CLOUDY 06/29/20 18:00 Urine pH 6.0 (5.0-9.0) 06/29/20 18:00 Ur Specific [place] 1.009 06/29/20 18:00 Urine Protein NEGATIVE mg/dL (NEGATIVE) 06/29/20 18:00 Urine Glucose (UA) NEGATIVE mg/dL (NEGATIVE) 06/29/20 18:00 Urine Ketones NEGATIVE mg/dL (NEGATIVE) 06/29/20 18:00 Urine Blood MODERATE (NEGATIVE) H 06/29/20 18:00 Urine Nitrite (Reflex) NEGATIVE (NEGATIVE) 06/29/20 18:00 Urine Bilirubin NEGATIVE (NEGATIVE) 06/29/20 18:00 Urine Urobilinogen NEGATIVE mg/dL (<2.0) 06/29/20 18:00 Leukocyte Esterase Rfl MODERATE (NEGATIVE) H 06/29/20 18:00 Urine RBC (Auto) 3 /HPF 06/29/20 18:00 Urine WBC (Reflex) 4 /HPF 06/29/20 18:00 Squamous Epi Cells Auto 7 /HPF 06/29/20 18:00 Urine Mucus (Auto) MANY /LPF 06/29/20 18:00 Urine Ascorbic Acid NEGATIVE (NEGATIVE) 06/29/20 18:00 COVID-19 Source Cancelled 06/29/20 18:40 COVID-19 (CAM) Cancelled 06/29/20 18:40 Influenza A (RT-PCR) NEGATIVE (NEGATIVE) 06/29/20 18:10 Influenza B (RT-PCR) NEGATIVE (NEGATIVE) 06/29/20 18:10 RSV (RT-PCR) NEGATIVE (NEGATIVE) 06/29/20 18:10 SARS-CoV-2 Rap RNA(RT-PCR) POSITIVE (NEGATIVE) H 06/29/20 18:10 Blood Type B POSITIVE 06/29/20 19:37 Antibody Screen NEGATIVE 06/29/20 19:37 Crossmatch See Detail 06/29/20 19:37 06/29/20 18:05 Troponin I < 0.012 Impressions: Chest X-Ray 06/29/20 17:45 IMPRESSION: Cannot exclude faintly defined multifocal pneumonia in the right lung. Plan Health Concerns: Ongoing menorrhagia requiring transfusions. Plan of Treatment: Needs definitive intervention in the way of hysterectomy Goals: Hysterectomy. In the meantime treatment with tranexamic acid to help decrease bleeding. Time Spent: Greater than 30 Minutes Stroke Is this a Stroke Patient?: No Acute Heart Failure Is this a Heart Failure Patient?: No
[2020-06-30 17:27] VITALS: BP 128/78
[2020-06-30] MEDS ORDERED: ASCORBIC ACID 500 MG TABLET PO SCH (18:00)
[2020-06-30] MEDS ORDERED: FERROUS SULFATE 325 MG TABLET PO SCH (18:00)
== END 2020-06-30 17:45 | disposition home or self-care (01) ==
LOC: ER 17:01 → EH 06-30 06:47 → 4S 06-30 09:50
PROVIDERS: ADMIT Hospitalist; ATTEND Hospitalist
DX: N92.1 Excessive and frequent menstruation with irregular cycle (principal); D62 Acute posthemorrhagic anemia; U07.1 COVID-19; R01.1 Cardiac murmur, unspecified; D25.9 Leiomyoma of uterus, unspecified; F12.10 Cannabis abuse, uncomplicated; E86.0 Dehydration; Z79.899 Other long term (current) drug therapy; Z87.891 Personal history of nicotine dependence; R00.0 Tachycardia, unspecified
CPT/HCPCS: 93005; 99285; 96360; 86900; 86901; 36415 ×2; 87040; 36430; 86850; 83605; 83735; 84703; 85025 ×2; 85610; 87635; 0241U; 80053; 81001; 84484; 86920 ×2; 82803; 71045; 93010; G0378 ×2; P9016 ×2; J3490 ×2; J7030; C9803